=== PATIENT | female | born 1960 | race Caucasian/White ===

== ENCOUNTER 2017-05-03 15:24 | Outpatient (CLI) | payer SELFPAY ==
[2017-05-03 18:41] LABS: BASOPHILS # (AUTO) 0.1 10^3/uL (0.0-0.1); BASOPHILS % (AUTO) 0.5 %; EOSINOPHILS # (AUTO) 0.7 10^3/uL (0.0-0.7); EOSINOPHILS % (AUTO) 5.5 %; HCT - HEMATOCRIT 38.5 % (37.0-47.0); HGB - HEMOGLOBIN 12.4 g/dL (12.0-16.0); LYMPHOCYTES # (AUTO) 2.7 10^3/uL (1.5-3.5); LYMPHOCYTES % (AUTO) 22.3 %; MEAN CORPUSCULAR HEMOGLOBIN 28.1 pg (27.0-31.0); MEAN CORPUSCULAR HGB CONC 32.2 g/dL (32.0-36.0); MEAN CORPUSCULAR VOLUME 87.5 fL (81.0-99.0); MEAN PLATELET VOLUME 7.6 fL (7.9-10.8); MONOCYTES # (AUTO) 0.8 10^3/uL (0.0-1.0); MONOCYTES % (AUTO) 6.3 %; NEUTROPHILS % (AUTO) 65.4 %; NUCLEATED RED BLOOD CELLS AUTO 0.1 /100WBC; RED CELL DISTRIBUTION WIDTH 13.2 % (12.0-15.0); UNCORRECTED WHITE BLOOD COUNT 12.2 x10^3/uL; WHITE BLOOD COUNT 12.2 x10^3/uL (4.8-10.8)
[2017-05-03 18:48] LABS: HEMOGLOBIN A1C 0.58 g/dL
[2017-05-03 18:51] LABS: ALBUMIN/GLOBULIN RATIO 1.1 (1.0-2.2); BILIRUBIN,TOTAL 0.3 mg/dL (0.2-1.0); CALCIUM 9.2 mg/dL (8.5-10.3); CREATININE 0.7 mg/dL (0.4-1.0); POTASSIUM 4.2 mmol/L (3.5-5.0); TOTAL PROTEIN 7.7 g/dL (6.7-8.2)
== END 2017-05-03 15:25 | disposition home or self-care (01) ==
LOC: LAB.F 15:24
PROVIDERS: ATTEND Physician Assistant Medical
DX: E11.9 Type 2 diabetes mellitus without complications (principal); Z51.81 Encounter for therapeutic drug level monitoring; Z79.899 Other long term (current) drug therapy
CPT/HCPCS: 36415; 80053; 83036; 85025

== ENCOUNTER 2017-08-20 15:23 | Outpatient (CLI) | payer OTHER ==
--- NOTE | 2017-08-21 10:44 | XRAY Report ---
EXAM: LUMBOSACRAL SPINE RADIOGRAPHY EXAM DATE: 08/20/2017 03:43 PM. CLINICAL HISTORY: BACK PAIN, LUMBAR WITH RADICULOPATHY. COMPARISONS: None. TECHNIQUE: 4 views. FINDINGS: Alignment: There is trace grade 1 retrolisthesis of L3 on L4 measuring approximately 3 mm. Otherwise normal alignment. Bones: Five utk-leo-hugyvfe lumbar vertebral bodies are present. No fractures or bone lesions. Disks: There is mild disk desiccation at L4/5 and L5/S1. Facets: There is moderate facet joint hypertrophy in the lower lumbar spine. Sacroiliac Joints: Unremarkable. Soft Tissues: Surgical clips are present in the right abdomen. IMPRESSION: 1. Mild to moderate degenerative changes in the lower lumbar spine. 2. Trace grade 1 retrolisthesis of L3 and L4. [facility] Referring Provider Line: [phone] SITE ID: [id number]
== END 2017-08-20 15:24 | disposition home or self-care (01) ==
LOC: DI.S 15:23
PROVIDERS: ATTEND Physician Assistant Medical
DX: M47.896 Other spondylosis, lumbar region (principal); M43.16 Spondylolisthesis, lumbar region; M51.36 Other intervertebral disc degeneration, lumbar region
CPT/HCPCS: 72110

== ENCOUNTER 2017-09-16 14:27 | Outpatient (CLI) | payer OTHER, BC ==
--- NOTE | 2017-09-17 04:22 | MRI Report ---
EXAM: MRI LUMBAR SPINE WITHOUT CONTRAST EXAM DATE: 09/16/2017 03:05 PM. CLINICAL HISTORY: Low back pain and bilateral thigh pain COMPARISON: Lumbar spine radiographs 08/20/2017.. TECHNIQUE: Multiplanar, multisequence T1-weighted and fluid-sensitive sequences of the lumbar spine f rom T12 to S1 without contrast. Other: None. FINDINGS: Spinal Cord: The conus terminates at L1. The conus medullaris and cauda equina are unremarkable. Alignment: Slight retrolisthesis at L3-L4. Bone Marrow: Five pqf-tnc-grnrcil lumbar vertebral bodies are assumed. No gross fractures or bone les ions. No bone marrow edema. Disk Levels/Facets: T12-L1: Unremarkable. L1-L2: Unremarkable. L2-L3: Unremarkable. L3-L4: Moderate disk space narrowing. Minimal bulging disk. No significant central stenosis. Foramina appear patent. L4-L5: Severe disk space narrowing. Mild bilateral ligamentum flavum hypertrophy. Minimal endplate os teophyte. Mild central stenosis. Mild bilateral foraminal stenosis. L5-S1: Moderate disk space narrowing. Type II endplate changes. Minimal endplate osteophyte. No signi ficant central stenosis. Moderate right-sided facet hypertrophy. Mild bilateral foraminal stenosis. Musculature: Normal. No edema or fatty atrophy. Other: The partially visualized retroperitoneum is unremarkable. IMPRESSION: L3-L4: Moderate disk space narrowing. Minimal bulging disk. No significant central stenosis. Foramina appear patent. L4-L5: Severe disk space narrowing. Mild bilateral ligamentum flavum hypertrophy. Minimal endplate os teophyte. Mild central stenosis. Mild bilateral foraminal stenosis. L5-S1: Moderate disk space narrowing. Type II endplate changes. Minimal endplate osteophyte. No signi ficant central stenosis. Moderate right-sided facet hypertrophy. Mild bilateral foraminal stenosis. Comment: The following findings are so common in adults without low back pain that while we report th eir presence, they must be interpreted with caution and in the context of the clinical situation. (Re carri Tobar et al, Spine 2001) Prevalence of findings in patients without low back pain: Disk degeneration (any evidence): 92% Disk desiccation/T2 signal loss: 83% Disk height loss: 56% Disk bulge: 64% Disk protrusion: 32% Annular tear/high intensity zone: 38% [facility] Referring Provider Line: [phone] SITE ID: [id number]
== END 2017-09-16 14:28 | disposition home or self-care (01) ==
LOC: DI 14:27
PROVIDERS: ATTEND Physician Assistant Medical
DX: M47.896 Other spondylosis, lumbar region (principal); M47.897 Other spondylosis, lumbosacral region
CPT/HCPCS: 72148

== ENCOUNTER 2017-10-18 08:00 | Outpatient (CLI) | payer SELFPAY ==
[2017-10-18 18:07] LABS: BASOPHILS % (AUTO) 0.5 %; EOSINOPHILS # (AUTO) 0.6 10^3/uL (0.0-0.7); EOSINOPHILS % (AUTO) 5.9 %; HGB - HEMOGLOBIN 12.3 g/dL (12.0-16.0); LYMPHOCYTES # (AUTO) 3.1 10^3/uL (1.5-3.5); LYMPHOCYTES % (AUTO) 30.8 %; MEAN CORPUSCULAR HGB CONC 32.5 g/dL (32.0-36.0); MEAN CORPUSCULAR VOLUME 89.4 fL (81.0-99.0); MONOCYTES # (AUTO) 0.7 10^3/uL (0.0-1.0); MONOCYTES % (AUTO) 6.8 %; NEUTROPHILS # (AUTO) 5.7 10^3/uL (1.5-6.6); PLT - PLATELET COUNT 409 10^3/uL (130-450); RED BLOOD COUNT 4.23 10^6/uL (4.20-5.40); RED CELL DISTRIBUTION WIDTH 13.5 % (12.0-15.0); WHITE BLOOD COUNT 10.1 x10^3/uL (4.8-10.8)
[2017-10-18 19:02] LABS: ALBUMIN/GLOBULIN RATIO 1.1 (1.0-2.2); ALKALINE PHOSPHATASE 86 IU/L (42-121); ALT ALANINE AMINOTRANSFERASE 23 IU/L (10-60); AST ASPARTATE AMINOTRANSFERASE 24 IU/L (10-42); BILIRUBIN,TOTAL 0.3 mg/dL (0.2-1.0); BUN - BLOOD UREA NITROGEN 13 mg/dL (6-20); CALCIUM 9.1 mg/dL (8.5-10.3); CARBON DIOXIDE - CO2 30 mmol/L (21-32); CHLORIDE 98 mmol/L (101-111); CHOLESTEROL 275 mg/dL; CREATININE 0.7 mg/dL (0.4-1.0); GFR - MDRD 86 (>89); GLUCOSE 99 mg/dL (70-100); HDL CHOLESTEROL 55 mg/dL; LDL CHOLESTEROL,CALCULATED 183 mg/dL; LDL/HDL RATIO 3.3 (<4.4); SODIUM 136 mmol/L (135-145); TOTAL PROTEIN 7.8 g/dL (6.7-8.2); VLDL CHOLESTEROL 37 mg/dL
[2017-10-18 19:19] LABS: HB2 TOTAL 13.2 g/dL; HEMOGLOBIN A1C 0.55 g/dL
== END 2017-10-18 23:59 | disposition home or self-care (01) ==
LOC: LAB.S 08:00
PROVIDERS: ATTEND Physician Assistant Medical
DX: Z00.00 Encounter for general adult medical examination without abnormal findings (principal); I10 Essential (primary) hypertension; E11.9 Type 2 diabetes mellitus without complications; E55.9 Vitamin D deficiency, unspecified; Z13.29 Encounter for screening for other suspected endocrine disorder
CPT/HCPCS: 36415; 80053; 80061; 82306; 83036; 83721; 84443; 85025

== ENCOUNTER 2018-10-19 13:22 | Outpatient (CLI) | payer OTHER ==
[2018-10-19 17:44] LABS: BASOPHILS # (AUTO) 0.1 10^3/uL (0.0-0.1); BASOPHILS % (AUTO) 0.6 %; EOSINOPHILS # (AUTO) 0.5 10^3/uL (0.0-0.7); EOSINOPHILS % (AUTO) 6.3 %; HGB - HEMOGLOBIN 13.4 g/dL (12.0-16.0); LYMPHOCYTES # (AUTO) 2.9 10^3/uL (1.5-3.5); LYMPHOCYTES % (AUTO) 33.2 %; MEAN CORPUSCULAR HEMOGLOBIN 28.9 pg (27.0-31.0); MEAN CORPUSCULAR HGB CONC 32.6 g/dL (32.0-36.0); MEAN CORPUSCULAR VOLUME 88.8 fL (81.0-99.0); MEAN PLATELET VOLUME 7.1 fL (7.9-10.8); MONOCYTES # (AUTO) 0.6 10^3/uL (0.0-1.0); MONOCYTES % (AUTO) 7.5 %; NEUTROPHILS # (AUTO) 4.5 10^3/uL (1.5-6.6); NEUTROPHILS % (AUTO) 52.4 %; PLT - PLATELET COUNT 520 10^3/uL (130-450); RED BLOOD COUNT 4.63 10^6/uL (4.20-5.40); RED CELL DISTRIBUTION WIDTH 12.3 % (12.0-15.0); WHITE BLOOD COUNT 8.7 x10^3/uL (4.8-10.8)
[2018-10-19 18:05] LABS: HB2 TOTAL 14.6 g/dL; HEMOGLOBIN A1C 0.61 g/dL
[2018-10-19 18:21] LABS: ALKALINE PHOSPHATASE 94 IU/L (42-121); ALT ALANINE AMINOTRANSFERASE 29 IU/L (10-60); AST ASPARTATE AMINOTRANSFERASE 31 IU/L (10-42); BILIRUBIN,TOTAL 0.5 mg/dL (0.2-1.0); BUN - BLOOD UREA NITROGEN 14 mg/dL (6-20); CALCIUM 9.4 mg/dL (8.5-10.3); CARBON DIOXIDE - CO2 29 mmol/L (21-32); CHLORIDE 94 mmol/L (101-111); CHOL/HDL RATIO 4.1 (<4.4); CHOLESTEROL 220 mg/dL; CREATININE 0.7 mg/dL (0.4-1.0); GFR - MDRD 86 (>89); GLUCOSE 122 mg/dL (70-100); HDL CHOLESTEROL 54 mg/dL; LDL CHOLESTEROL,CALCULATED 124 mg/dL; LDL/HDL RATIO 2.3 (<4.4); SODIUM 137 mmol/L (135-145); TOTAL PROTEIN 7.9 g/dL (6.7-8.2); VLDL CHOLESTEROL 42 mg/dL
== END 2018-10-19 13:23 | disposition home or self-care (01) ==
LOC: LAB.F 13:22
PROVIDERS: ATTEND Physician Assistant Medical
DX: Z51.81 Encounter for therapeutic drug level monitoring (principal); E78.5 Hyperlipidemia, unspecified; E11.9 Type 2 diabetes mellitus without complications
CPT/HCPCS: 36415; 80053; 80061; 82043; 83036; 83721; 85025

== ENCOUNTER 2019-01-16 13:07 | Outpatient (CLI) | payer OTHER | END 2019-01-16 13:08 | disposition home or self-care (01) | LOC: LAB.F 13:07 | PROVIDERS: ATTEND Physician Assistant Medical | DX: E03.9 Hypothyroidism, unspecified (principal) | CPT/HCPCS: 36415; 84443 ==

== ENCOUNTER 2020-02-22 08:00 | Outpatient (CLI) | payer OTHER ==
[2020-02-22 20:00] LABS: BILIRUBIN,URINE NEGATIVE (NEGATIVE); GLUCOSE, URINE (UA) NEGATIVE (NEGATIVE); KETONES,URINE (UA) NEGATIVE (NEGATIVE); LEUKOCYTE ESTERASE, URINE NEGATIVE (NEGATIVE); NITRITE,URINE NEGATIVE (NEGATIVE); OCCULT BLOOD,URINE NEGATIVE (NEGATIVE); PROTEIN,URINE NEGATIVE (NEGATIVE); UROBILINOGEN,URINE 0.2 (NORMAL) E.U./dL (NORMAL)
[2020-02-22 20:16] LABS: BACTERIA,URINE None Seen /HPF (None Seen); CLARITY,URINE CLEAR (CLEAR); RBC,URINE None Seen /HPF (0-5); SQUAMOUS EPITHELIAL CELL,UR NONE SEEN (<= Few)
== END 2020-02-22 23:59 | disposition home or self-care (01) ==
LOC: LAB.R 08:00
PROVIDERS: ATTEND Physician Assistant Medical
DX: R35.0 Frequency of micturition (principal)
CPT/HCPCS: 81001; 87086

== ENCOUNTER 2020-02-22 08:00 | Outpatient (CLI) | payer OTHER ==
--- NOTE | 2020-02-23 08:37 | XRAY Report ---
Reason: FLANK PAIN, RIGHT Procedure Date: 02/22/2020 Accession Number: [id number] / [id number] Procedure: XRS - Abdomen 2 View X-Ray CPT Code: 64030 Final Report FULL RESULT: PROCEDURE: Abdomen 2 View X-Ray INDICATIONS: FLANK PAIN, RIGHT TECHNIQUE: 2 view(s) of the abdomen were acquired. COMPARISON: Lumbar spine radiographs 08/20/2017. FINDINGS: Surgical changes and devices: Cholecystectomy clips. Clip in the right lower quadrant. Right breast clips. Bowel: No pneumoperitoneum. No pneumatosis intestinalis. Scattered small bowel and colonic gas. No dilated loops of bowel demonstrated. Soft tissues: No masses; visualized solid organ contours appear normal in size. No suspicious abdominal calcifications. No kidney stones identified. Phleboliths in the pelvis appear similar to the exam from 2017. Lung bases appear clear. Bones: No suspicious bony abnormalities. Lumbar spine degenerative change. IMPRESSION: 1. Nonobstructive bowel gas pattern. No pneumoperitoneum. 2. No kidney stones identified. Consider further evaluation with CT KUB if clinically indicated. Reviewed by: Jose Martin Herrera MD on 02/23/2020 8:36 AM PDT Approved by: Jose Martin Herrera MD on 02/23/2020 8:36 AM PDT Station ID: [id number]
== END 2020-02-22 23:59 | disposition home or self-care (01) ==
LOC: DI.S 08:00
PROVIDERS: ATTEND Physician Assistant Medical
DX: R10.9 Unspecified abdominal pain (principal); R35.0 Frequency of micturition
CPT/HCPCS: 74019

== ENCOUNTER 2020-06-17 12:12 | Outpatient (CLI) | payer OTHER ==
--- NOTE | 2020-06-17 15:19 | Mammography Report ---
BILATERAL DIGITAL DIAGNOSTIC MAMMOGRAM 3D/2D: 06/17/2020 CLINICAL: Post left lumpectomy. Comparison is made to exams dated: 04/20/2020 ultrasound - [facility], 08/01/2019 ma mmogram, 06/21/2019 mammogram, 05/24/2019 mammogram, 04/26/2019 mammogram, and 09/26/2015 mammogram - [facility]. There are scattered fibroglandular elements in both breasts. Prior right breast lumpectomy in the upper outer quadrant. No mass or calcifications seen. There is r ight breast skin thickening. This was seen on prior ultrasound 04/20/2020. There is an oval focal asymmetry in the left breast central to the nipple posterior depth. This is n ot confirmed on additional views. No other significant masses, calcifications, or other findings are seen in either breast. IMPRESSION: INCOMPLETE: NEEDS ADDITIONAL IMAGING EVALUATION 1) Right breast skin thickening. Edema was present on prior ultrasound 04/20/2020. Suspect mastitis mulu cristina post radiation edema. -Recommend on-going clinical surveillance. -If symptoms do not improve, skin biopsy should be considered to exclude inflammatory breast cancer. 2) Otherwise expected appearance of the right lumpectomy site. 3) Left breast central to nipple posterior depth possible focal asymmetry. Additional views do not co nfirm. -A second look targeted ultrasound is recommended and will immediately follow. This exam was interpreted at Station ID: [id number]. NOTE: For mammograms, a report in lay terms will be sent to the patient. Approximately 15% of breast malignancies will not be visualized mammographically. In the management of a palpable breast mass, a negative mammogram must not discourage biopsy of a clinically suspicious lesion. Electronically Signed By: Jose Martin Herrera M.D. slc/:06/17/2020 14:45:19 ACR BI-RADS Category 0: Incomplete 3340F PARENCHYMAL PATTERN: (A) - The breast(s) demonstrate(s) scattered fibroglandular densities. BI-RADS CATEGORY: (0) - 0 Ultrasound [id number] Immediate follow-up LATERALITY: (B)
--- NOTE | 2020-06-17 15:19 | Ultrasound Report ---
LIMITED ULTRASOUND OF LEFT BREAST: 06/17/2020 CLINICAL: Patient returns today to evaluate a focal asymmetry in the left breast. Comparison is made to exams dated: 06/17/2020 mammogram - [facility], 08/01/2019 ma mmogram, 08/01/2019 mammogram, and 06/21/2019 mammogram - [facility]. Color flow and real-time ultrasound of the left breast retroareolar were performed. Linn scale image s of the real-time examination were reviewed. No significant abnormalities were seen sonographically in the left breast in the region of possible f ocal asymmetry. IMPRESSION: NEGATIVE There is no sonographic evidence of malignancy. No mass in the region of possible focal asymmetry. A 1 year screening mammogram is recommended. Exam findings were conveyed to the patient. This exam was interpreted at Station ID: [id number]. Electronically Signed By: Jose Martin Herrera M.D. slc/:06/17/2020 14:43:27 Ultrasound BI-RADS: 1 Negative BI-RADS CATEGORY: (1) - 1 RECOMMENDATION: (ANNUAL) - Recommend routine annual screening mammography. [id number] 1 year screening LATERALITY: (B)
== END 2020-06-17 12:13 | disposition home or self-care (01) ==
LOC: DI 12:12
PROVIDERS: ATTEND Registered Nurse
DX: D05.11 Intraductal carcinoma in situ of right breast (principal); N61.1 Abscess of the breast and nipple
CPT/HCPCS: 76642; 77066

== ENCOUNTER 2020-08-02 12:55 | Outpatient (CLI) | payer OTHER ==
--- NOTE | 2020-08-05 14:05 | Ultrasound Report ---
LIMITED ULTRASOUND OF RIGHT BREAST: 08/02/2020 CLINICAL: Diffuse right breast pain. Comparison is made to exams dated: 06/17/2020 mammogram and 04/20/2020 ultrasound - [facility]. Color flow and real-time ultrasound of the right breast outer aspect and retroareolar regions were pe rformed on the areas of interest. Linn scale images of the real-time examination were reviewed. There is a 2.3 cm x 3.4 cm x 1.3 cm hypoechoic region in the in the right breast at 8 o'clock middle depth deep to the surgical scar. An anechoic fluid collection is noted centrally which measures 0.9 x 0.4 cm. This may correlate with the patients area of pain. There also is an irregular, reniform mass in the right breast at 10 o'clock middle depth. This irreg ular mass is hypoechoic. Additionally, there is benign duct ectasia in the right breast central to the nipple in the retroareo lar region. IMPRESSION: INCOMPLETE: NEEDS ADDITIONAL IMAGING EVALUATION The duct ectasia in the right breast central to the nipple in the retroareolar region is benign. The 2.3 cm x 3.4 cm x 1.3 cm mass in the right breast at 8 o'clock middle depth may represent surgica l scar and a small seroma, however is indeterminate. The irregular mass in the right breast at 10 o'clock middle depth is most consistent with a lymph nod e and is indeterminate. An MRI is recommended to further characterize thee findings and evaluate the patients lateral right b reast pain. This exam was interpreted at Station ID: [id number]. Electronically Signed By: Sara Sprague M.D. lk/:08/02/2020 16:39:47 Ultrasound BI-RADS: 0 Indeterminate BI-RADS CATEGORY: (0) - 0 MRI [id number] Immediate follow-up LATERALITY: (B)
== END 2020-08-02 12:56 | disposition home or self-care (01) ==
LOC: DI 12:55
PROVIDERS: ATTEND Registered Nurse
DX: N60.41 Mammary duct ectasia of right breast (principal); N63.13 Unspecified lump in the right breast, lower outer quadrant; N63.11 Unspecified lump in the right breast, upper outer quadrant
CPT/HCPCS: 76642

== ENCOUNTER 2020-08-29 14:50 | Outpatient (CLI) | payer OTHER ==
[2020-08-29 15:20] LABS: CREATININE 0.8 mg/dL (0.4-1.0)
[2020-08-29] MEDS ORDERED: GADOBUTROL 7.5 MMOL/7.5 ML VIAL ONE (16:01)
[2020-08-29] MEDS ORDERED: GADOBUTROL 7.5 MMOL/7.5 ML VIAL IVP ONE (17:01)
--- NOTE | 2020-09-02 10:19 | MRI Report ---
BREAST MRI OF BOTH BREASTS- WITH CAD: 08/29/2020 CLINICAL: Diffuse right breast pain. Comparison is made to exams dated: 08/02/2020 ultrasound, 06/17/2020 ultrasound, and 06/17/2020 mammog julian - [facility]. Interpretation of this MRI was correlated with available mammograms and ultrasounds. Informed consen t was obtained from the patient. Axial T1, T2, sagittal T1, and pre and post contrast T1 images were obtained with a dedicated breast coil. Post processing was performed including computer aided calcu lations of any tumor volumes and dimensions. Bilateral background breast enhancement is moderate. There is moderate background parenchymal enhancement. Right breast: There is diffuse skin thickening which appears increased compared to the recent mammog julian 06/17/2020. This demonstrates associated enhancement following contrast administration. The find ings demonstrate an anterior and caudal predominance. There is also asymmetric moderate to marked ba ckground enhancement throughout the right breast. In addition, there is extensive linear retroareola r enhancement extending posterolaterally to the lower outer quadrant at approximately the 8 o'clock p osition in the area of the surgical scar. Postsurgical changes are demonstrated in the lower outer q uadrant posteriorly with associated enhancement in the surgical bed. A small loculated fluid collect ion in the surgical bed is demonstrated measuring up to 1.1 x 0.4 cm likely representing a seroma. P ostsurgical changes are also demonstrated within the right chest wall laterally with enhancement of t he pectoral musculature. No discrete masslike enhancement. Left breast: No discrete mass or definite suspicious enhancement demonstrated within the left breast to suggest malignancy. Evaluation is limited by bzej-ke-omkvohyy background parenchymal enhancement. Miscellaneous: No suspicious enlarged axillary or internal mammary lymph nodes by size criteria. IMPRESSION: PROBABLY BENIGN 1. Diffuse skin thickening and enhancement demonstrated within the right breast as well as asymmetric right breast background parenchymal enhancement. The findings are again suggestive of a mastitis an d appear slightly increased compared to the prior mammogram. The differential includes Paget's disea se. Recommend correlation clinically and if indicated further evaluation may be obtained with a skin biopsy. 2. Extensive linear retroareolar enhancement extending posteriorly from the right nipple to the surgi rochelle bed in the lower outer quadrant. This also may represent an infectious or inflammatory mastitis but short-term follow-up is recommended in 3 months following appropriate therapy to exclude malignan cy. 3. Nonspecific enhancement within the surgical bed including involvement of the chest wall may also r eflect involvement of an infectious or inflammatory process. Attention is also recommended on follow -up in 3 months following appropriate therapy. A follow-up breast MRI in 3 months is recommended. Future imaging is recommended as follows: 021 screening mammogram. This exam was interpreted at Station ID: [id number]. Electronically Signed By: Buck Westfall M.D. ddp/:08/30/2020 17:12:10 ACR BI-RADS Category 3: Probably benign 3343F BI-RADS CATEGORY: (3) - 3 MRI [id number] 3 month follow-up LATERALITY: (B)
== END 2020-08-29 14:51 | disposition home or self-care (01) ==
LOC: DI 14:50
PROVIDERS: ATTEND Registered Nurse
DX: D05.11 Intraductal carcinoma in situ of right breast (principal); N61.0 Mastitis without abscess
CPT/HCPCS: 36415; 77049; 82565; A9585

== ENCOUNTER 2020-09-06 14:41 | Emergency (ER) | payer OTHER ==
--- NOTE | 2020-09-06 14:54 | ED Physician Documentation ---
PD HPI SKIN - Stated complaint Stated Complaint: RIGHT SIDED BREAST PX - Chief complaint Chief Complaint: General - History obtained from History obtained from: Patient - History of Present Illness Timing - onset: How many days ago (few days of redness/ pain/ swelling lateral right breast radiating to right axillary area. No pain wrapping to the back.) Quality / character: Painful, Discolored, Swelling. No: Draining Associated symptoms: Myalgias, N/V/D. No: Fever Similar symptoms before: Diagnosis (recurrent mastitis over the past 6 months. Has had prior lumpectomy in that breast. Had MRI of the breast as follow up to U/S, which showed small fluid collection (persistent seroma?) with inflammatory changes retroareaolar and in breast skin c/w cellulitis/mastitis. No tumors.) Recently seen: Clinic Review of Systems Constitutional: reports: Myalgias. denies: Fever, Chills Nose: denies: Rhinorrhea / runny nose, Congestion Throat: denies: Sore throat Respiratory: denies: Cough GI: reports: Nausea. denies: Vomiting, Diarrhea Neurologic: denies: Focal weakness, Numbness, Near syncope PD PAST MEDICAL HISTORY - Past Medical History Cardiovascular: Hypertension, High cholesterol Respiratory: Asthma Endocrine/Autoimmune: HyPOthyroidism Psych: Depression - Past Surgical History Past Surgical History: Yes General: Cholecystectomy Ortho: Carpal Tunnel surgery /[employer]: section - Present Medications Home Medications: Ambulatory Orders Medication Instructions Recorded Confirmed Albuterol Oral Soln 2 mg PO Q6H 11/29/13 11/29/13 Alprazolam [Xanax] 0.25 mg PO 11/29/13 11/29/13 Levothyroxine [Synthroid] 175 mcg PO QDAC 11/29/13 11/29/13 Rosuvastatin Calcium [Crestor] 5 mg PO 11/29/13 11/29/13 Tizanidine HCl 2 mg PO 11/29/13 11/29/13 atenoloL [Atenolol] 25 mg PO 11/29/13 11/29/13 hydroCHLOROthiazide [Hydrodiuril] 12.5 mg PO 11/29/13 11/29/13 lamoTRIgine [LaMICtal] 25 mg PO DAILY 11/29/13 11/29/13 oxyCODONE ER [OxyCONTIN] 10 mg PO Q12H 11/29/13 11/29/13 Clindamycin [Cleocin] 300 mg PO Q6H 7 Days capsule 04/20/20 Oxycodone HCl/Acetaminophen 1 - 2 each PO Q6H PRN #14 tablet 04/20/20 [Percocet 5-325 mg Tablet] Doxycycline Monohydrate 150 mg PO BID #14 capsule 09/06/20 Hydrocodone/Acetaminophen [Warren 1 each PO QID #16 tablet 09/06/20 7.5-325 Tablet] Naproxen Sodium [Anaprox Ds] 550 mg PO BID #20 tablet 09/06/20 - Allergies Allergies/Adverse Reactions: Allergies Allergy/AdvReac Type Severity Reaction Status Date / Time cephalexin monohydrate * Allergy Rash Verified 09/06/20 14:51 [From Keflex] Latex, Natural Rubber Allergy burning Verified 09/06/20 14:51 sensation methadone [Methadone] Allergy Rash Verified 09/06/20 14:51 Sulfa (Sulfonamide Allergy Rash Verified 09/06/20 14:51 Antibiotics) duloxetine AdvReac Emesis Verified 09/06/20 14:51 - Social History Does the pt smoke?: No Smoking Status: Never smoker Does the pt drink ETOH?: No Does the pt have substance abuse?: No PD ED PE NORMAL - Vitals Vital signs reviewed: Yes - General General: Alert and oriented X 3, Well developed/nourished, Other (appears in pain due to breast redness/swelling. ) - Neck Neck: Supple, no meningeal sign, No adenopathy - Cardiac Cardiac: RRR, No murmur - Respiratory Respiratory: Clear bilaterally - Abdomen Abdomen: Normal bowel sounds, Soft, Non tender, Non distended - Derm Derm: Normal color, Warm and dry, Other (right breast lateral and inferiorly with firmness, redness, very tender, but no fluctuance. Mild fullness laterally. No axillary nodes. ) - Extremities Extremities: No edema, No calf tenderness / cord - Neuro Neuro: Alert and oriented X 3, No motor deficit, Normal speech Eye Opening: Spontaneous Motor: Obeys Commands Verbal: Oriented GCS Score: 15 Results - Vitals Vitals: Vital Signs - 24 hr 09/06/20 09/06/20 09/06/20 14:45 15:04 16:45 Temperature 36.5 C Heart Rate 91 87 94 Respiratory 17 18 20 Rate Blood Pressure 166/97 H 167/91 H 137/76 H O2 Saturation 96 95 96 Oxygen O2 Source Room air - Labs Labs: Laboratory Tests 09/06/20 09/06/20 15:13 15:13 WBC 10.8 RBC 4.04 L Hgb 11.6 L Hct 37.8 MCV 93.6 MCH 28.7 MCHC 30.7 L RDW 12.3 Plt Count 443 MPV 8.4 Neut # (Auto) 6.8 H Lymph # (Auto) 2.5 Sargent # (Auto) 0.8 Eos # (Auto) 0.7 Baso # (Auto) 0.1 Absolute Nucleated RBC 0.00 Nucleated RBC % 0.0 Sodium 140 Potassium 4.0 Chloride 96 L Carbon Dioxide 28 Anion Gap 16.0 H BUN 15 Creatinine 0.8 Estimated GFR (MDRD) 73 L Glucose 116 H Calcium 9.3 C-Reactive Protein < 1.0 PD MEDICAL DECISION MAKING - ED course Complexity details: reviewed old records (MRI report from 08/29/20 showing mastitis and cellulitis. No noted tumors. Small fluid collection c/w seroma at prior biopsy site. ), reviewed results, considered differential (c/w mastitis, no fever nor general symptoms. Has had it recurrently with improvement with Bactrim last time. ALlergic/vomiting from Clindamycin. Presume staph cause. ), d/w patient, d/w senior safety management consultant (tried contacting Dr. Teto Cochran at her Pain CLinic to discuss increased pain meds short term due to acute mastitis. The clinic was closed for the day. ) Departure - Departure Disposition: 01 Home, Self Care Clinical Impression: Infective mastitis, Breast pain Condition: Stable Record reviewed to determine appropriate education?: Yes Instructions: ED Breast Infec Follow-Up: Yandy Mendenhall ARNP [Primary Care Provider] - Jyotsna Connelly MD [Provider Admit Priv/Credential] - Prescriptions: Naproxen Sodium [Anaprox Ds] 550 mg PO BID #20 tablet Doxycycline Monohydrate 150 mg PO BID #14 capsule Hydrocodone/Acetaminophen [Warren 7.5-325 Tablet] 1 each PO QID #16 tablet Comments: Your MRI from the showed inflammatory changes consistent with mastitis and cellulitis but no signs of tumors. Follow-up with Dr. Connelly regarding the MRI and breast infection. Follow-up with her on the as planned or sooner if not improving. Use the doxycycline antibiotic twice daily as directed. Also naproxen anti- inflammatory twice daily. Continue with your usual medications and to that add hydrocodone 4 times a day as a supplemental pain medicine. Your pain clinic was closed at this time. I will add a short-term pain medicine to your usual regimen. I will presume your pain clinic provider will be okay with that. Contact them on Wednesday to update. I add this added pain medicine for just 4 days. Recheck if not improving well over the next several days return sooner if worsening such as fevers vomiting, worse pain, increased redness, etc. Discharge Date/Time: 09/06/20 17:03
[2020-09-06] MEDS ORDERED: HYDROmorphone 2 MG/ML VIAL IM STA (15:13)
[2020-09-06] MEDS ORDERED: DOXYCYCLINE 100 MG TABLET PO STA (15:20)
[2020-09-06 15:47] LABS: BASOPHILS # (AUTO) 0.1 10^3/uL (0.0-0.1); BASOPHILS % (AUTO) 0.5 %; EOSINOPHILS # (AUTO) 0.7 10^3/uL (0.0-0.7); EOSINOPHILS % (AUTO) 6.1 %; HGB - HEMOGLOBIN 11.6 g/dL (12.0-16.0); LYMPHOCYTES # (AUTO) 2.5 10^3/uL (1.5-3.5); MEAN CORPUSCULAR HEMOGLOBIN 28.7 pg (27.0-31.0); MEAN CORPUSCULAR HGB CONC 30.7 g/dL (32.0-36.0); MEAN CORPUSCULAR VOLUME 93.6 fL (81.0-99.0); MEAN PLATELET VOLUME 8.4 fL (7.9-10.8); MONOCYTES # (AUTO) 0.8 10^3/uL (0.0-1.0); NEUTROPHILS # (AUTO) 6.8 10^3/uL (1.5-6.6); NEUTROPHILS % (AUTO) 62.9 %; PLT - PLATELET COUNT 443 10^3/uL (130-450); RED BLOOD COUNT 4.04 10^6/uL (4.20-5.40); RED CELL DISTRIBUTION WIDTH 12.3 % (12.0-15.0); WHITE BLOOD COUNT 10.8 x10^3/uL (4.8-10.8)
[2020-09-06 16:06] LABS: BUN - BLOOD UREA NITROGEN 15 mg/dL (6-20); CALCIUM 9.3 mg/dL (8.5-10.3); CARBON DIOXIDE - CO2 28 mmol/L (21-32); CHLORIDE 96 mmol/L (101-111); CREATININE 0.8 mg/dL (0.4-1.0); GLUCOSE 116 mg/dL (70-100); SODIUM 140 mmol/L (135-145)
[2020-09-06 16:34] LABS: CRP - C-REACTIVE PROTEIN < 1.0 mg/dL (0-1.0)
[2020-09-06 16:46] VITALS: BP 137/76
== END 2020-09-06 17:03 | disposition home or self-care (01) ==
LOC: ED 14:41
DX: N61.0 Mastitis without abscess (principal); I10 Essential (primary) hypertension
CPT/HCPCS: 80048; 85025; 86140; 96374; 99283; 99284; A9270; J1170; 36415

== ENCOUNTER 2020-10-04 19:55 | Outpatient (CLI) | payer OTHER | END 2020-10-04 19:56 | disposition home or self-care (01) | LOC: COV 19:55 | PROVIDERS: ATTEND Surgery | DX: Z01.812 Encounter for preprocedural laboratory examination (principal); Z20.822 Contact with and (suspected) exposure to COVID-19; N61.1 Abscess of the breast and nipple ==

== ENCOUNTER 2020-10-07 06:21 | Day surgery (SDC) | payer OTHER ==
[~2020-10-07 06:21] MED LIST: ceFAZolin 2 GM/50 ML 0 GM/0 ML BAG IV ONE
[2020-10-07] MEDS ORDERED: LACTATED RINGERS 1,000 ML IV ONE ×2 (06:54→08:25)
[2020-10-07] MEDS ORDERED: fentaNYL 100 MCG/2 ML VIAL ONE (07:00)
[2020-10-07] MEDS ORDERED: PROPOFOL 200 MG/20 ML VIAL IVP ONE (07:00)
[2020-10-07] MEDS ORDERED: DEXAMETHASONE 4 MG/ML VIAL ONE (07:00)
[2020-10-07] MEDS ORDERED: ONDANSETRON 4 MG/2 ML VIAL ONE (07:00)
[2020-10-07] MEDS ORDERED: LIDOCAINE-MPF 2% 5 ML VIAL ONE (07:00)
[2020-10-07] MEDS ORDERED: BUPIVACAINE 0.5% PF 30 ML VIAL ONE (07:07)
[2020-10-07] MEDS ORDERED: LIDOCAINE MPF 2%-EPI 1:200000 20 ML VIAL ONE (07:07)
[2020-10-07] MEDS ORDERED: ONDANSETRON 4 MG/2 ML VIAL IVP PRN (07:11)
[2020-10-07] MEDS ORDERED: ATROPINE ABBOJECT 1 MG/10 ML SYRINGE IVP PRN (07:11)
[2020-10-07] MEDS ORDERED: ePHEDrine 50 MG/ML VIAL IVP PRN (07:11)
[2020-10-07] MEDS ORDERED: MORPHINE 2 MG/ML CARPUJECT IVP PRN (07:11)
[2020-10-07] MEDS ORDERED: NALOXONE 0.4 MG/ML VIAL IVP PRN (07:11)
[2020-10-07] MEDS ORDERED: fentaNYL 100 MCG/2 ML VIAL IVP PRN (07:11)
[2020-10-07] MEDS ORDERED: METOCLOPRAMIDE 10 MG/2 ML VIAL IVP PRN (07:11)
[2020-10-07] MEDS ORDERED: HYDROmorphone 0.5 MG/0.5 ML SYRINGE IVP PRN (07:11)
--- NOTE | 2020-10-07 07:11 | ANESTHESIA ---
Pre-Anesthesia VS, & Labs - Diagnosis infected right breast - Procedure right breast seroma evacuation with drain placement Vital Signs: Temp Pulse Resp BP Pulse Ox 36.7 C 74 16 149/81 H 99 10/07/20 06:34 10/07/20 06:34 10/07/20 06:34 10/07/20 06:34 10/07/20 06:34 Height: 5 ft 1 in Weight (kg): 68.7 kg Body Mass Index: 28.6 BMI Classification: Overweight - NPO >8 hours - Is Patient ?: No - Lab Results Lab results reviewed: Yes Home Medications and Allergies Home Medications: Ambulatory Orders Acyclovir [Zovirax] 400 mg PO TID PRN 09/30/20 Albuterol 2.5 mg INH Q4H PRN 09/30/20 Albuterol Sulfate [Proair Hfa Inhaler] 1 - 2 puffs INH Q4H PRN 09/30/20 Calcium Carbonate [Elemental Calcium] 1,000 mg PO DAILY 09/30/20 Cholecalciferol [Vitamin D3] 2,500 unit PO BID 09/30/20 Ciclesonide [Alvesco] 2 puffs IH BID PRN 09/30/20 Diclofenac Sodium [Arthritis Pain] 1 applic TP BID PRN 09/30/20 Gabapentin [Neurontin] 300 mg PO BID 09/30/20 Meloxicam [Mobic] 15 mg PO DAILY PRN 09/30/20 Metoprolol Succinate [Toprol Xl] 100 mg PO DAILY 09/30/20 Montelukast Sodium 10 mg PO DAILY PRN 09/30/20 [place]-3 Acid Ethyl Esters [Lovaza] 2 gm PO DAILY 09/30/20 Simvastatin [Zocor] 40 mg PO QPM 09/30/20 Levothyroxine [Synthroid] 137 mcg PO QDAC 11/29/13 Tizanidine HCl 4 mg PO QID PRN 11/29/13 hydroCHLOROthiazide [Hydrodiuril] 12.5 mg PO DAILY 11/29/13 lamoTRIgine [LaMICtal] 100 - 200 mg PO BID 11/29/13 Acyclovir [Zovirax] 400 mg PO TID PRN 09/30/20 Albuterol 2.5 mg INH Q4H PRN 09/30/20 Albuterol Sulfate [Proair Hfa Inhaler] 1 - 2 puffs INH Q4H PRN 09/30/20 Calcium Carbonate [Elemental Calcium] 1,000 mg PO DAILY 09/30/20 Cholecalciferol [Vitamin D3] 2,500 unit PO BID 09/30/20 Ciclesonide [Alvesco] 2 puffs IH BID PRN 09/30/20 Diclofenac Sodium [Arthritis Pain] 1 applic TP BID PRN 09/30/20 Gabapentin [Neurontin] 300 mg PO BID 09/30/20 Meloxicam [Mobic] 15 mg PO DAILY PRN 09/30/20 Metoprolol Succinate [Toprol Xl] 100 mg PO DAILY 09/30/20 Montelukast Sodium 10 mg PO DAILY PRN 09/30/20 [place]-3 Acid Ethyl Esters [Lovaza] 2 gm PO DAILY 09/30/20 Simvastatin [Zocor] 40 mg PO QPM 09/30/20 Allergies/Adverse Reactions: Allergies Allergy/AdvReac Type Severity Reaction Status Date / Time cephalexin monohydrate * Allergy Rash Verified 09/06/20 14:51 [From Keflex] Latex, Natural Rubber Allergy burning Verified 09/06/20 14:51 sensation methadone [Methadone] Allergy Rash Verified 09/06/20 14:51 Sulfa (Sulfonamide Allergy Rash Verified 09/06/20 14:51 Antibiotics) clindamycin AdvReac Nausea, Verified 09/30/20 11:27 diarrhea duloxetine AdvReac Emesis Verified 09/06/20 14:51 lisinopril AdvReac Unknown Verified 10/07/20 06:56 Anes History & Medical History - Anesthetic History Anesthesia Complications: reports: No previous complications Family history of Anesthesia Complications: Denies Family history of Malignant Hyperthermia: Denies - Medical History Cardiovascular: reports: Hypertension, High cholesterol Pulmonary: reports: Asthma Gastrointestinal: reports: None Urinary: reports: None Musculoskeletal: reports: Fibromyalgia, Chronic back pain Endocrine/Autoimmune: reports: HyPOthyroidism Smoking Status: Never smoker - Surgical History General: Cholecystectomy Eyes Ears Nose Throat (EENT): Other Gynecologic: section, Other Orthopedic: Rotator cuff repair, Carpal Tunnel surgery Exam General: Alert, Oriented x3, Cooperative, No acute distress Dental: Loose/Frag Mouth Openin Fingerbreadth Neck Mobility: Normal Mallampati classification: II Respiratory: Lungs clear, Normal breath sounds, No respiratory distress, No accessory muscle use Cardiovascular: Regular rate, Normal S1, Normal S2, No murmurs Plan Anesthesia Type: General Consent for Procedure(s) Verified and Reviewed: Yes Code Status: Attempt Resuscitation ASA classification: 2-Mild systemic disease Is this case an emergency?: No
[2020-10-07] MEDS ORDERED: LIDOCAINE MPF 2%-EPI 1:200000 20 ML VIAL SUBQ ONE ×2 (07:12→08:08)
[2020-10-07] MEDS ORDERED: BUPIVACAINE 0.5% PF 30 ML VIAL INFIL ONE ×2 (07:13→08:08)
[2020-10-07] MEDS ORDERED: MIDAZOLAM 2 MG/2 ML VIAL ONE (07:19)
[2020-10-07] MEDS ORDERED: KETAMINE 500 MG/10 ML VIAL ONE (07:21)
[2020-10-07] MEDS ORDERED: CIPROFLOXACIN 400 MG/200 ML 400 MG/200 ML BAG IV ONE (07:45)
[2020-10-07] MEDS ORDERED: LACTATED RINGERS 1,000 ML IV SCH (08:00)
--- NOTE | 2020-10-07 08:17 | OPERATIVE REPORT ---
Operative Report - General Procedure Date: 10/07/20 Planned Procedure: Wound exploration with evacuation of seroma cavity. Pre-Op Diagnosis: Symptomatic right breast seroma Procedure Performed: Wound exploration with evacuation of seroma cavity, biopsy, culture and drain placement Post Op Diagnosis: Symptomatic right breast seroma - Procedure Note Primary Surgeon: Maricel Anesthesia Provider: RHINA Ndiaye Pathology: Biopsy of seroma cavity Estimated Blood Loss (mL): 5 Drain/Tube Type: Jayant drain (15 F Jayant drain in the seroma cavity) Indications: Symptomatic right breast seroma Findings: No gross evidence of infection. Very small cavity without obvious inflammation Complications: None apparent - Other Other Information/Narrative: After obtaining informed consent, the patient is brought to the operating room and placed in the supine position on the operating table. Following successful induction of general anesthesia, appropriate padding of all bony prominences, and placement appropriate monitors, the right breast and axilla were prepped and draped in the standard surgical fashion. A timeout was held per scope protocol. All elements of the surgical safety checklist were followed before, during, and after the procedure. Following infiltration with local anesthetic to create a field block, the existing right breast incision in the lower outer quadrant wasReopened and carried down through the skin and subcutaneous tissue to enter a small poorly defined seroma cavity below. This cavity did extend all the way to the retromammary bursa. It was primarily a potential space and was developed with the surgeon's finger. A minimal amount of oily murky fluid without odor was evacuated. This fluid was cultured. The posterior wall of the cavity was then biopsied sharply with Metzenbaum scissors. The specimen was passed from the table. The cavity was then irrigated with warm water and aspirated free of all fluid and particulate matter.A 19 [place]olan Jayant drain was placed in the pocket and brought out inferior laterally. It was sewn into place with a silk suture. The incision was then closed in 2 layers of Vicryl Monocryl sutures and Dermabond was applied to the skin. All sponge, needle, and instrument counts were correct at the conclusion of the case. The patient was let awake from anesthesia without difficulty and taken to the postanesthesia care unit in good condition.
[2020-10-07] MEDS ORDERED: oxyCODONE 5 MG TABLET ONE (09:16)
--- NOTE | 2020-10-07 09:59 | ANESTHESIA POST OP EVALUATION ---
Anesthesia Post Eval - Post Anesthesia Eval Vitals: Last Vital Signs Temp 36.7 C 10/07/20 09:15 Pulse 71 10/07/20 09:30 Resp 14 10/07/20 09:30 BP 129/84 H 10/07/20 09:30 Pulse Ox 98 10/07/20 09:30 CV Function Including HR & BP: positive: Stable Pain Control: positive: Satisfactory Nausea & Vomiting: positive: Negative Mental Status: positive: Patient Participates Respiratory Status: Airway Patent Hydration Status: Satisfactory Anesthesia Complications: positive: None
[2020-10-07 10:14] VITALS: BP 138/87
== END 2020-10-07 06:22 | disposition home or self-care (01) ==
LOC: SDS 06:21
PROVIDERS: ATTEND Surgery
PROC: 0HBT0ZX Excision of Right Breast, Open Approach, Diagnostic (ICD-10-PCS; 2020-10-07)
PROC: 0HCT0ZZ Extirpation of Matter from Right Breast, Open Approach (ICD-10-PCS; principal; 2020-10-07 07:30)
DX: N64.89 Other specified disorders of breast (principal); Z85.3 Personal history of malignant neoplasm of breast; Z92.3 Personal history of irradiation; Z20.822 Contact with and (suspected) exposure to COVID-19; I10 Essential (primary) hypertension; E78.00 Pure hypercholesterolemia, unspecified; J45.909 Unspecified asthma, uncomplicated; M79.7 Fibromyalgia; E03.9 Hypothyroidism, unspecified; G89.29 Other chronic pain; M54.9 Dorsalgia, unspecified; E66.3 Overweight; Z68.28 Body mass index [BMI] 28.0-28.9, adult; Z79.51 Long term (current) use of inhaled steroids; Z79.899 Other long term (current) drug therapy
CPT/HCPCS: 19101; 81599; A9270; J7120; 87070; 87205

== ENCOUNTER 2021-07-17 10:50 | Outpatient (CLI) | payer OTHER ==
--- NOTE | 2021-07-18 09:11 | Ultrasound Report ---
LIMITED ULTRASOUND OF RIGHT BREAST: 07/17/2021 CLINICAL: Short term follow up of the right breast. Comparison is made to exams dated: 07/17/2021 mammogram, 08/29/2020 breast MRI, 08/02/2020 ultrasoun d, 06/17/2020 ultrasound, 06/17/2020 mammogram, and 04/20/2020 ultrasound - [facility]. Color flow and real-time ultrasound of the right breast 6 o'clock and 8-10 o'clock regions were perfo rmed. Linn scale images of the real-time examination were reviewed. There is a 0.8 cm x 0.6 cm x 0.3 cm irregular mass in the right breast at 10 o'clock anterior depth 3 cm from the nipple. This irregular mass is hypoechoic. Color flow imaging demonstrates that there is no vascularity present. The breast is decreased in size likely due to radiation changes. These was previously measured further from the nipple. The mass in the right breast at 8 o'clock middle depth is no longer seen. There is skin thickening me asuring 0.6 cm in depth. No fluid collection at 9:00. The duct ectasia in the right breast is no longer seen. IMPRESSION: PROBABLY BENIGN The 0.8 cm irregular mass in the right breast at 10 o'clock anterior depth is likely a lymph node or a scar and is probably benign. Resolved fluid collection at 9:00. A follow-up ultrasound in 6 months is recommended to demonstrate stability. If the patient can tolera te a breast MRI, this would be helpful to document improvement/resolution of asymmetric right breast enhancement seen on prior MRI. The patient experience chest wall pain during prior MRI making the exam very difficult. Today the son ographer reports mild redness of the right breast. No drainage or fluid collection is seen. Exam findings were conveyed to the patient. Patient is advised to monitor for significant change. Cli nical follow-up is recommended. This exam was interpreted at Station ID: [id number]. Electronically Signed By: Jose Martin Herrera M.D. [facility] [place]/:07/17/2021 14:23:26 Ultrasound BI-RADS: 3 Probably benign BI-RADS CATEGORY: (3) - 3 Ultrasound [id number] 6 month follow-up LATERALITY: (B)
--- NOTE | 2021-07-18 09:11 | Mammography Report ---
BILATERAL DIGITAL DIAGNOSTIC MAMMOGRAM 3D/2D: 07/17/2021 CLINICAL: Short term follow up of the right breast, due for bilateral imaging. Comparison is made to exams dated: 08/29/2020 breast MRI, 08/02/2020 ultrasound, 06/17/2020 ultrasoun d, 06/17/2020 mammogram, 04/20/2020 ultrasound - [facility], and 08/01/2019 mammogram - [facility]. There are scattered fibroglandular elements in both breasts. Right breast images are suboptimal despite multiple attempts by the technologist. No significant masses, calcifications, or other findings are seen in either breast. Post-operative f indings and skin thickening of the right breast are similar to the prior exam. Prior right breast lum pectomy. Right breast is asymmetrically smaller than the left. IMPRESSION: INCOMPLETE: NEEDS ADDITIONAL IMAGING EVALUATION No mammographic evidence of malignancy. Similar right breast post-treatment changes. A targeted right breast ultrasound is recommended and will immediately follow. This exam was interpreted at Station ID: [id number]. NOTE: For mammograms, a report in lay terms will be sent to the patient. Approximately 15% of breast malignancies will not be visualized mammographically. In the management of a palpable breast mass, a negative mammogram must not discourage biopsy of a clinically suspicious lesion. Electronically Signed By: Jose Martin Herrera M.D. [facility]/:07/17/2021 12:30:15 ACR BI-RADS Category 0: Incomplete 3340F PARENCHYMAL PATTERN: (A) - The breast(s) demonstrate(s) scattered fibroglandular densities. BI-RADS CATEGORY: (0) - 0 Ultrasound [id number] Immediate follow-up LATERALITY: (B)
== END 2021-07-17 10:51 | disposition home or self-care (01) ==
LOC: DI 10:50
PROVIDERS: ATTEND Registered Nurse
DX: N64.4 Mastodynia (principal); N61.0 Mastitis without abscess; G89.4 Chronic pain syndrome; N63.11 Unspecified lump in the right breast, upper outer quadrant

== ENCOUNTER 2021-12-10 11:47 | Outpatient (CLI) | payer OTHER ==
[2021-12-10 14:56] LABS: BASOPHILS % (AUTO) 0.4 %; EOSINOPHILS # (AUTO) 0.6 10^3/uL (0.0-0.7); EOSINOPHILS % (AUTO) 5.7 %; HCT - HEMATOCRIT 41.6 % (37.0-47.0); HGB - HEMOGLOBIN 13.2 g/dL (12.0-16.0); LYMPHOCYTES # (AUTO) 3.2 10^3/uL (1.5-3.5); LYMPHOCYTES % (AUTO) 29.3 %; MEAN CORPUSCULAR HEMOGLOBIN 28.4 pg (27.0-31.0); MEAN CORPUSCULAR HGB CONC 31.7 g/dL (32.0-36.0); MEAN CORPUSCULAR VOLUME 89.7 fL (81.0-99.0); MEAN PLATELET VOLUME 9.8 fL (7.9-10.8); MONOCYTES # (AUTO) 0.8 10^3/uL (0.0-1.0); MONOCYTES % (AUTO) 7.1 %; NEUTROPHILS # (AUTO) 6.2 10^3/uL (1.5-6.6); NEUTROPHILS % (AUTO) 57.2 %; PLT - PLATELET COUNT 429 10^3/uL (130-450); RED BLOOD COUNT 4.64 10^6/uL (4.20-5.40); RED CELL DISTRIBUTION WIDTH 12.7 % (12.0-15.0); WHITE BLOOD COUNT 10.8 x10^3/uL (4.8-10.8)
[2021-12-10 15:12] LABS: CREATININE,URINE 361.7 mg/dL; MICROALBUM/CREATININE RATIO,UR 10.8 ug/mg (<30.0); MICROALBUMIN,URINE 3.9 mg/dL (0-300.0)
[2021-12-10 15:36] LABS: ALBUMIN 3.9 g/dL (3.2-5.5); ALKALINE PHOSPHATASE 110 IU/L (42-121); ALT ALANINE AMINOTRANSFERASE 22 IU/L (10-60); AST ASPARTATE AMINOTRANSFERASE 29 IU/L (10-42); BILIRUBIN,TOTAL 0.5 mg/dL (0.2-1.0); BUN - BLOOD UREA NITROGEN 13 mg/dL (6-20); CALCIUM 9.4 mg/dL (8.5-10.3); CARBON DIOXIDE - CO2 30 mmol/L (21-32); CHLORIDE 96 mmol/L (101-111); CHOL/HDL RATIO 4.5 (<4.4); CHOLESTEROL 250 mg/dL; CREATININE 0.8 mg/dL (0.4-1.0); GFR - MDRD 73 (>89); GLUCOSE 139 mg/dL (70-100); HDL CHOLESTEROL 56 mg/dL; LDL CHOLESTEROL,CALCULATED 137 mg/dL; LDL/HDL RATIO 2.4 (<4.4); POTASSIUM 4.1 mmol/L (3.5-5.0); SODIUM 139 mmol/L (135-145); TRIGLYCERIDES 286 mg/dL; VLDL CHOLESTEROL 57 mg/dL
[2021-12-10 15:39] LABS: THYROID STIMULATING HORMONE 1.46 uIU/mL (0.34-5.60)
[2021-12-10 20:21] LABS: ESTIMATED AVERAGE GLUCOSE 143 mg/dL (70-100); HEMOGLOBIN A1c% 6.6 % (4.27-6.07)
== END 2021-12-10 11:48 | disposition home or self-care (01) ==
LOC: LAB.S 11:47
PROVIDERS: ATTEND Registered Nurse
DX: I10 Essential (primary) hypertension (principal); G89.4 Chronic pain syndrome; Z79.899 Other long term (current) drug therapy; E03.9 Hypothyroidism, unspecified; E11.9 Type 2 diabetes mellitus without complications
CPT/HCPCS: 36415; 80053; 80061; 82043; 82570; 83036; 83721; 84443; 85025

== ENCOUNTER 2022-02-04 13:30 | Outpatient (CLI) | payer OTHER ==
--- NOTE | 2022-02-05 14:51 | Ultrasound Report ---
LIMITED ULTRASOUND OF RIGHT BREAST: 02/04/2022 CLINICAL: Focal right breast pain. Comparison is made to exams dated: 07/17/2021 ultrasound, 07/17/2021 mammogram, 08/29/2020 breast MR I, 08/02/2020 ultrasound, 06/17/2020 mammogram, and 04/20/2020 ultrasound - [facility] . Color flow and real-time ultrasound of the right breast four quadrants were performed. Linn scale im ages of the real-time examination were reviewed. The mass in the right breast at 10 o'clock anterior depth is no longer seen. This had the appearance of an intramammary lymph node. No fluid collection. No mass in the regions of pain. There is diffuse skin thickening. IMPRESSION: BENIGN There is no sonographic evidence of malignancy. There is diffuse chronic skin thickening. This likely due to post treatment change. If there is tyler rn for inflammatory breast cancer, skin biopsy would be recommended. Exam findings were conveyed to the patient. Patient is advised to monitor for significant change. Cli nical follow-up is recommended. Last bilateral mammogram was on 07/17/2021. This exam was interpreted at Station ID: [id number]. Electronically Signed By: Jose Martin Herrera M.D. [facility]/:02/04/2022 14:38:27 Ultrasound BI-RADS: 2 Benign BI-RADS CATEGORY: (2) - 2 RECOMMENDATION: (ANNUAL) - Recommend routine annual screening mammography. [id number] return to screening LATERALITY: (B)
== END 2022-02-04 13:31 | disposition home or self-care (01) ==
LOC: DI 13:30
PROVIDERS: ATTEND Registered Nurse
DX: N64.4 Mastodynia (principal)

== ENCOUNTER 2022-11-24 00:28 | Emergency (ER) | payer OTHER ==
--- OUTSIDE RECORDS SUMMARY | 2022-11-24 00:50 | EXTERNAL MEDICAL SUMMARY RPT | Continuity of Care Document ---
:1960 Author Organization [facility] Address [address] [place] [address] Phone Care Team Providers Name Role Phone Unavailable Unavailable Unavailable Yandy Beatty Unavailable Unavailable Allergies No information. Encounters No information. Functional Status No information. Immunizations No information. Medications date description facility 2022-09-17 00:00 FREE STYLE LANCETS [facility] 2022-09-18 00:00 FREE STYLE LANCETS [facility] 2022-10-08 00:00 FREE STYLE LANCETS [facility] 2022-10-20 00:00 FREE STYLE LANCETS [facility] 2022-09-17 00:00 FREE STYLE METER [facility] 2022-09-18 00:00 FREE STYLE METER [facility] 2022-10-08 00:00 FREE STYLE METER [facility] 2022-10-20 00:00 FREE STYLE METER [facility] Jazzy jasso 2022-09-17 00:00 FREE STYLE TEST STRIPS [facility] 2022-09-18 00:00 FREE STYLE TEST STRIPS [facility] 2022-10-08 00:00 FREE STYLE TEST STRIPS [facility] jasso 2022-10-20 00:00 FREE STYLE TEST STRIPS [facility] 2022-09-17 00:00 hydrochlorothiazide Walk[facility]In Clinic [facility] 2022-10-08 00:00 hydrochlorothiazide Walk[facility] J[facility] jasso 2022-09-17 00:00 metoprolol succinate [facility] 2022-10-08 00:00 metoprolol succinate [facility] 2022-10-08 00:00 albuterol sulfate [facility] 2022-09-17 00:00 levothyroxine [facility] 2022-10-08 00:00 levothyroxine [facility] 2022-09-17 00:00 ciclesonide [facility] 2022-10-08 00:00 ciclesonide [facility] 2022-09-17 00:00 lamotrigine [facility] 2022-10-08 00:00 lamotrigine [facility] 2022-09-17 00:00 hydrochlorothiazide [facility] 2022-10-08 00:00 hydrochlorothiazide [facility] 2022-10-08 00:00 montelukast [facility] 2022-09-17 00:00 trazodone [facility] 2022-10-08 00:00 trazodone [facility] 2022-10-20 00:00 [id number] [facility] 2022-10-08 00:00 metformin [facility] 2022-09-17 00:00 levothyroxine [facility] 2022-10-08 00:00 levothyroxine [facility] 2022-09-17 00:00 levothyroxine [facility] 2022-10-08 00:00 levothyroxine [facility] 2022-10-08 00:00 metformin [facility] 2022-10-08 00:00 gabapentin [facility] 2022-10-20 00:00 [id number] [facility] 2022-10-08 00:00 tizanidine [facility] 2022-09-17 00:00 metoprolol succinate [facility] 2022-10-08 00:00 metoprolol succinate [facility] 2022-09-17 00:00 losartan [facility] 2022-10-08 00:00 losartan [facility] 2022-09-17 00:00 lamotrigine [facility] 2022-10-08 00:00 lamotrigine [facility] 2022-09-17 00:00 hydrochlorothiazide Walk[facility]In Clinic [facility] 2022-10-08 00:00 hydrochlorothiazide Walk[facility] 2022-10-08 00:00 atorvastatin [facility] 2022-10-08 00:00 tizanidine [facility] 2022-09-17 00:00 losartan [facility] 2022-10-08 00:00 losartan [facility] 2022-10-08 00:00 albuterol sulfate [facility] 2022-09-17 00:00 albuterol sulfate [facility] 2022-10-08 00:00 albuterol sulfate [facility] 2022-09-17 00:00 ciclesonide [facility] 2022-10-08 00:00 ciclesonide [facility] 2022-10-08 00:00 montelukast [facility] 2022-09-17 00:00 albuterol sulfate [facility] 2022-10-08 00:00 albuterol sulfate [facility] 2022-09-17 00:00 hydrochlorothiazide Walk[facility] 2022-10-08 00:00 hydrochlorothiazide Walk[facility] 2022-10-08 00:00 atorvastatin [facility] 2022-09-17 00:00 trazodone [facility] 2022-10-08 00:00 trazodone [facility] 2022-10-08 00:00 montelukast [facility] 2022-09-17 00:00 kwztkzvz-brsrlv-jz-thonzonium [facility] 2022-10-08 00:00 eppsmymy-sdiswa-nn-thonzonium [facility] 2022-10-08 00:00 metformin [facility] 2022-10-08 00:00 tizanidine [facility] 2022-09-17 00:00 trazodone [facility] 2022-10-08 00:00 trazodone [facility] 2022-09-17 00:00 lamotrigine [facility] 2022-10-08 00:00 lamotrigine [facility] 2022-10-08 00:00 gabapentin [facility] 2022-10-08 00:00 gabapentin [facility] 2022-10-08 00:00 atorvastatin [facility] 2022-10-08 00:00 albuterol sulfate [facility] 2022-10-08 00:00 atorvastatin [facility] 2022-09-17 00:00 oqubrnwm-qdczbb-te-thonzonium [facility] 2022-10-08 00:00 nwcriigy-htopqo-sm-thonzonium [facility] jasso 2022-10-08 00:00 montelukast [facility] 2022-09-17 00:00 albuterol sulfate [facility] 2022-10-08 00:00 albuterol sulfate [facility] 2022-10-20 00:00 vzrtsayl-xnvmthefv-kq [facility] 2022-10-08 00:00 albuterol sulfate [facility] 2022-09-17 00:00 losartan [facility] 2022-10-08 00:00 losartan [facility] 2022-09-17 00:00 ciclesonide [facility] 2022-10-08 00:00 ciclesonide [facility] 2022-09-17 00:00 metoprolol succinate [facility] Jazzy jasso 2022-10-08 00:00 metoprolol succinate [facility] 2022-10-08 00:00 gabapentin [facility] 2022-09-17 00:00 lamotrigine [facility] 2022-10-08 00:00 [facility]otrigine [facility] albuterol sulfate [facility] 2022-10-08 00:00 albuterol sulfate [facility] 2022-10-08 00:00 tizanidine [facility] 2022-09-17 00:00 ciclesonide [facility] 2022-10-08 00:00 ciclesonide [facility] 2022-09-17 00:00 zomsbgww-mwudxi-bf-thonzonium [facility] 2022-10-08 00:00 irtzrwgx-nothmo-pn-thonzonium [facility] 2022-09-17 00:00 trazodone [facility] 2022-10-08 00:00 trazodone [facility] 2022-10-08 00:00 metformin [facility] 2022-09-17 00:00 metoprolol succinate [facility] 2022-10-08 00:00 metoprolol succinate [facility] 2022-10-20 00:00 wscehclp-fnbiwdkmf-zb [facility] 2022-09-17 00:00 ipjkbixw-jdqcxi-vc-thonzonium [facility] 2022-10-08 00:00 djvntueu-nxlykh-ys-thonzonium [facility] Jaz[facility] jasso 2022-09-17 00:00 levothyroxine [facility] 2022-10-08 00:00 levothyroxine [facility] 2022-09-17 00:00 losartan [facility] 2022-10-08 00:00 losartan [facility] jasso Problems date description facility 2022-09-17 00:00 Moderate recurrent major [facility] & depression [facility] 2022-09-17 00:00 Long-term drug therapy [facility] 2022-09-17 00:00 Major depressive disorder, [facility] & recurrent episode, moderate degree [facility] [place] 2022-09-17 00:00 Major depressive disorder, [facility] Primary Care & recurrent episode, in partial or Ancilla [facility] [place] unspecified remission 2022-09-17 00:00 Otitis externa [facility] 2022-09-17 00:00 Infective otitis externa, [facility] Care & unspecified [facility] 2022-09-17 00:00 Major depressive disorder, [facility] & recurrent, moderate [facility] 2022-09-17 00:00 Major depressive disorder, [facility] & recurrent, in partial remission [facility] [place] 2022-09-17 00:00 Unspecified otitis externa, right [facility] Primary [facility] & ear [facility] 2022-09-17 00:00 Long-term (current) drug use Walk[facility]In [facility] 2022-09-17 00:00 Other custodial (current) drug [facility] & therapy [facility] 2022-09-18 00:00 Moderate recurrent major [facility] & depression [facility] 2022-09-18 00:00 Major depressive disorder, [facility] & recurrent episode, moderate degree [facility] [place] 2022-09-18 00:00 Major depressive disorder, [facility] Care & recurrent episode, in partial or [facility] [place] unspecified remission 2022-09-18 00:00 Major depressive disorder, [facility] & recurrent, moderate [facility] 2022-09-18 00:00 Major depressive disorder, [facility] & recurrent, in partial remission [facility] [place] 2022-10-08 00:00 Moderate recurrent major [facility] & depression [facility] 2022-10-08 00:00 Major depressive disorder, [facility] & recurrent episode, moderate degree [facility] [place] 2022-10-08 00:00 Major depressive disorder, [facility] Care & recurrent episode, in partial or [facility] [place] unspecified remission 2022-10-08 00:00 Major depressive disorder, [facility] & recurrent, moderate [facility] 2022-10-08 00:00 Major depressive disorder, [facility] & recurrent, in partial remission [facility] [place] 2022-10-20 00:00 Moderate recurrent major [facility] & depression [facility] 2022-10-20 00:00 Major depressive disorder, [facility] & recurrent episode, moderate degree [facility] [place] 2022-10-20 00:00 Major depressive disorder, [facility] Care & recurrent episode, in partial or [facility] [place] unspecified remission 2022-10-20 00:00 Major depressive disorder, [facility] & recurrent, moderate [facility] 2022-10-20 00:00 Major depressive disorder, [facility] & recurrent, in partial remission [facility] [place] Procedures date description facility 2022-09-17 00:00 Visit Code Hold [facility] [place] Results/Labs No information. Social History date description facility 2022-09-17 00:00 Never smoker [facility] [place] Vital Signs date measurement value units 2022-09-17 00:00 BMI 28.92 kg/m2 2022-09-17 00:00 BP_diastolic 87 mmHg 2022-09-17 00:00 BP_systolic 175 mmHg 2022-09-17 00:00 heart_rate 73 /min 2022-09-17 00:00 height_metric 153.67 cm 2022-09-17 00:00 height_standard 60.5 in 2022-09-17 00:00 respiration_rate 14 /min 2022-09-17 00:00 temperature_metric 36.78 C 2022-09-17 00:00 temperature_standard 98.2 F 2022-09-17 00:00 weight_metric 68.04 kg 2022-09-17 00:00 weight_standard 150 lb
[2022-11-24 00:53] LABS: BASOPHILS % (AUTO) 0.3 %; EOSINOPHILS % (AUTO) 0.1 %; HCT - HEMATOCRIT 42.6 % (37.0-47.0); HGB - HEMOGLOBIN 13.8 g/dL (12.0-16.0); LYMPHOCYTES % (AUTO) 4.6 %; MEAN CORPUSCULAR HEMOGLOBIN 28.1 pg (27.0-31.0); MEAN CORPUSCULAR HGB CONC 32.4 g/dL (32.0-36.0); MEAN CORPUSCULAR VOLUME 86.8 fL (81.0-99.0); MEAN PLATELET VOLUME 8.7 fL (7.9-10.8); MONOCYTES % (AUTO) 4.6 %; NEUTROPHILS % (AUTO) 89.5 %; PLT - PLATELET COUNT 674 10^3/uL (130-450); RED BLOOD COUNT 4.91 10^6/uL (4.20-5.40); RED CELL DISTRIBUTION WIDTH 12.5 % (12.0-15.0); WHITE BLOOD COUNT 29.9 x10^3/uL (4.8-10.8)
[2022-11-24 00:55] LABS: ABNORMAL LYMPHS % (MANUAL) 0 %
[2022-11-24] MEDS ORDERED: SODIUM CHLORIDE 0.9% 1,000 ML IV STA ×2 (00:57→05:37)
[2022-11-24] MEDS ORDERED: ONDANSETRON 4 MG/2 ML VIAL IVP STA ×2 (00:57→06:44)
--- NOTE | 2022-11-24 01:00 | ED Physician Documentation ---
PD HPI CHEST PAIN - Stated complaint Stated Complaint: NAUSEA/CHEST PX - Chief complaint Chief Complaint: Cardiac - History obtained from History obtained from: Patient - Additional information Additional information: 62-year-old woman with hx breast ca and fibromyalgia/chronic pain presented to the emergency department with full body aches, abd pain and chest pain radiating to the upper back with associated nausea and vomiting since yesterday at 3 PM. unable to keep down her home meds or any fluids. Patient does have a history of breast cancer in remission s/p radiation, complicated by chronic mastitis requiring hyperbaric oxygen. Review of Systems Constitutional: reports: Chills, Myalgias, Fatigue. 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, Other HEENT: Other - Present Medications Home Medications: Ambulatory Orders Medication Instructions Recorded Confirmed Levothyroxine [Synthroid] 137 mcg PO QDAC 11/29/13 11/24/22 Tizanidine HCl 4 mg PO QID PRN 11/29/13 11/24/22 hydroCHLOROthiazide [Hydrodiuril] 12.5 mg PO DAILY 11/29/13 11/24/22 lamoTRIgine [LaMICtal] 100 - 200 mg PO BID 11/29/13 11/24/22 Oxycodone HCl/Acetaminophen 1 - 2 each PO Q6H PRN #14 tablet 04/20/20 11/24/22 [Percocet 5-325 mg Tablet] Albuterol Sulfate [Proair Hfa 1 - 2 puffs INH Q4H PRN 09/30/20 11/24/22 Inhaler] Calcium Carbonate [Elemental 1,000 mg PO DAILY 09/30/20 11/24/22 Calcium] Cholecalciferol [Vitamin D3] 2,500 unit PO BID 09/30/20 11/24/22 Ciclesonide [Alvesco] 2 puffs IH BID PRN 09/30/20 11/24/22 Diclofenac Sodium [Arthritis Pain] 1 applic TP BID PRN 09/30/20 11/24/22 Gabapentin [Neurontin] 300 mg PO BID 09/30/20 11/24/22 Metoprolol Succinate [Toprol Xl] 100 mg PO DAILY 09/30/20 11/24/22 Montelukast Sodium 10 mg PO DAILY PRN 09/30/20 11/24/22 [place]-3 Acid Ethyl Esters [Lovaza] 2 gm PO DAILY 09/30/20 11/24/22 Simvastatin [Zocor] 40 mg PO QPM 09/30/20 11/24/22 Ondansetron Odt [Zofran Odt] 4 mg TL Q6H PRN #10 tablet 10/07/20 11/24/22 oxyCODONE [Roxicodone] 5 mg PO Q4-6H PRN #7 tablet 10/07/20 11/24/22 Pregabalin [Lyrica] 75 mg PO BID #120 cap 10/29/20 11/24/22 Amitriptyline [Elavil] 10 mg PO QPM 11/24/22 11/24/22 Amlodipine Besylate [Norvasc] 10 mg PO DAILY 11/24/22 11/24/22 hydroCHLOROthiazide [Hydrodiuril] 12.5 mg PO DAILY 11/24/22 11/24/22 lamoTRIgine [Lamictal] 200 mg PO DAILY 11/24/22 11/24/22 metFORMIN [Glucophage] 500 mg PO BID 11/24/22 11/24/22 methocarbamoL [Methocarbamol] 1 - 2 tab PO Q8HR PRN 11/24/22 11/24/22 - Allergies Allergies/Adverse Reactions: Allergies Allergy/AdvReac Type Severity Reaction Status Date / Time cephalexin monohydrate * Allergy Rash Verified 11/24/22 00:42 [From Keflex] Latex, Natural Rubber Allergy burning Verified 11/24/22 00:42 sensation methadone [Methadone] Allergy Rash Verified 11/24/22 00:42 Sulfa (Sulfonamide Allergy Rash Verified 11/24/22 00:42 Antibiotics) clindamycin AdvReac Nausea, Verified 11/24/22 00:42 diarrhea duloxetine AdvReac Emesis Verified 11/24/22 00:42 lisinopril AdvReac Unknown Verified 11/24/22 00:42 - Social History Does the pt smoke?: No Smoking Status: Never smoker Does the pt drink ETOH?: No Does the pt have substance abuse?: No - Immunizations Immunizations are current?: Yes - POLST Patient has POLST: No PD ED PE NORMAL - Vitals Vital signs reviewed: Yes - General General: Alert and oriented X 3, Other (uncomfortable appearing) - HEENT HEENT: Atraumatic, PERRL, EOMI - Neck Neck: Supple, no meningeal sign - Cardiac Cardiac: Other (tachycardic rate, regular rhythm) - Respiratory Respiratory: No respiratory distress, Clear bilaterally - Abdomen Abdomen: Non tender, Non distended, Other (discomfort ) - Derm Derm: Normal color, Warm and dry - Neuro Neuro: No motor deficit, No sensory deficit - Psych Psych: Normal mood, Normal affect Results - Vitals Vitals: Vital Signs - 24 hr 11/24/22 11/24/22 11/24/22 00:34 00:48 01:25 Temperature 36.6 C Heart Rate 139 H 127 H 118 H Respiratory 20 16 22 Rate Blood Pressure 199/121 H 178/110 H 164/114 H O2 Saturation 98 100 100 11/24/22 11/24/22 11/24/22 01:42 01:50 02:00 Temperature Heart Rate 115 H 133 H 121 H Respiratory 16 17 22 Rate Blood Pressure 163/91 H 165/103 H 169/81 H O2 Saturation 99 99 98 11/24/22 11/24/22 11/24/22 02:19 04:00 04:30 Temperature 37.2 C Heart Rate 118 H 126 H 114 H Respiratory 19 14 12 Rate Blood Pressure 173/87 H 190/112 H 155/98 H O2 Saturation 96 99 93 11/24/22 11/24/22 11/24/22 05:03 05:35 05:56 Temperature Heart Rate 122 H 115 H 111 H Respiratory 12 13 12 Rate Blood Pressure 180/106 H 165/99 H 162/96 H O2 Saturation 95 93 94 11/24/22 11/24/22 11/24/22 06:31 07:00 07:24 Temperature Heart Rate 117 H 114 H 90 Respiratory 12 12 10 L Rate Blood Pressure 176/106 H 139/83 H 148/94 H O2 Saturation 95 93 95 03/07/23 07:38 Temperature Heart Rate 94 Respiratory 11 L Rate Blood Pressure 157/100 H O2 Saturation 95 Oxygen O2 Source Room air - Labs Labs: Laboratory Tests 11/24/22 11/24/22 11/24/22 00:44 00:44 00:44 WBC 29.9 H RBC 4.91 Hgb 13.8 Hct 42.6 MCV 86.8 MCH 28.1 MCHC 32.4 RDW 12.5 Plt Count 674 H MPV 8.7 Neut # (Auto) Not Reportable Lymph # (Auto) Not Reportable [place] # (Auto) Not Reportable Eos # (Auto) Not Reportable Baso # (Auto) Not Reportable Absolute Nucleated RBC Not Reportable Total Counted 100 Band Neuts % (Manual) 1 Abnorm Lymph % (Manual) 0 Nucleated RBC % Not Reportable Neutrophils # (Manual) 25.7 H Lymphocytes # (Manual) 1.8 Monocytes # (Manual) 2.4 H Eosinophils # (Manual) 0.0 Basophils # (Manual) 0.0 Differential Comment MANUAL DIFFERENTIAL WBC Morphology NORMAL APPEARANCE Platelet Estimate INCREASED (>450,000) Platelet Morphology NORMAL APPEARANCE RBC Morph Micro Appear NORMAL APPEARANCE D-Dimer Sodium 143 Potassium 2.9 L Chloride 97 L Carbon Dioxide 20 L Anion Gap 26.0 H BUN 16 Creatinine 1.1 H Estimated GFR (MDRD) 50 L Glucose 303 H Calcium 10.3 Total Bilirubin 0.6 AST 36 ALT 26 Alkaline Phosphatase 128 H Troponin I High Sens 57.5 H* Total Protein 8.7 H Albumin 4.5 Globulin 4.2 Albumin/Globulin Ratio 1.1 Lipase 23 11/24/22 11/24/22 11/24/22 01:40 05:17 07:00 WBC RBC Hgb Hct MCV MCH MCHC RDW Plt Count MPV Neut # (Auto) Lymph # (Auto) [place] # (Auto) Eos # (Auto) Baso # (Auto) Absolute Nucleated RBC Total Counted Band Neuts % (Manual) Abnorm Lymph % (Manual) Nucleated RBC % Neutrophils # (Manual) Lymphocytes # (Manual) Monocytes # (Manual) Eosinophils # (Manual) Basophils # (Manual) Differential Comment WBC Morphology Platelet Estimate Platelet Morphology RBC Morph Micro Appear D-Dimer 355.6 H Sodium Potassium Chloride Carbon Dioxide Anion Gap BUN Creatinine Estimated GFR (MDRD) Glucose Calcium Total Bilirubin AST ALT Alkaline Phosphatase Troponin I High Sens 250.9 H* 264.8 H* Total Protein Albumin Globulin Albumin/Globulin Ratio Lipase PD Medical Decision Making - ED course ED course: 62yF presented with myalgia, abd pain, n/v, and chest discomfort radiating to the back. EKG was performed which shows a significant artifact, performed at 00 41 and misread as atrial fibrillation. We will plan to repeat. Plan to obtain CBC, abdominal panel, troponin, chest x-ray, D-dimer given history of breast cancer she may be at increased risk of PE in the setting of chest pain. Repeat EKG @04:42 sinus tachycardia at [address] or T wave changes. 7am - CT without evidence of pathology. patient requiring significant symptomatic care including multiple doses IV zofran/reglan, IV pain meds, and 2 L IVF. Suspect viral gastroenteritis in conjunction with NSTEMI. She has had persistent tachycardia despite aggressive symptom management but this may be in part due to not being able to stomach her 100mg metoprolol yesterday. IV 5mg metoprolol administered. d/w Dr. Correa who requested CT a/p be performed to evaluate for colitis or obstruction. She requested we call her back after CT read. Patient endorsed to Dr. Nolasco to f/u CT and potentially admit [facility] for further management. Departure - Departure Clinical Impression: Chest pain, Abdominal pain, Nausea and vomiting, Myalgia, Hypokalemia Condition: Serious
[2022-11-24] MEDS ORDERED: MORPHINE 2 MG/ML CARPUJECT IVP STA (01:06)
[2022-11-24 01:14] LABS: BAND NEUTROPHILS % (MANUAL) 1 %; LYMPHOCYTES # (MANUAL) 1.8 10^3/uL (1.5-3.5); LYMPHOCYTES % (MANUAL) 6 %; MONOCYTES # (MANUAL) 2.4 10^3/uL (0.0-1.0); NEUTROPHILS # (MANUAL) 25.7 10^3/uL (1.5-6.6)
[2022-11-24 01:15] LABS: DIFFERENTIAL COMMENT MANUAL DIFFERENTIAL; PLATELET ESTIMATE, MANUAL INCREASED (>450,000) (NORMAL); PLATELET MORPHOLOGY NORMAL APPEARANCE (NORMAL); RBC MORPHOLOGY (MULTIPLE) NORMAL APPEARANCE (NORMAL); WBC MORPHOLOGY (MULTIPLE) NORMAL APPEARANCE (NORMAL)
[2022-11-24] MEDS ORDERED: NITROGLYCERIN SL 0.4 MG TABLET SL STA (01:40)
--- NOTE | 2022-11-24 01:46 | XRAY Report ---
PROCEDURE: Chest 1 View X-Ray INDICATIONS: Chest Pain TECHNIQUE: One view of the chest was acquired. COMPARISON: None. FINDINGS: Surgical changes and devices: None. Lungs and pleura: No pleural effusions or pneumothorax. Lungs are clear. Mediastinum: Mediastinal contours appear normal. Heart size is normal. Bones and chest wall: No suspicious bony lesions. Overlying soft tissues appear unremarkable. IMPRESSION: 1. No acute cardiopulmonary disease. Reviewed by: Buck Carrasquillo MD on 11/24/2022 1:45 AM [facility] Approved by: Buck Carrasquillo MD on 11/24/2022 1:45 AM [facility] Station ID: [id number]
[2022-11-24] MEDS ORDERED: iohexoL-300 100 ML VIAL ONE ×3 (01:47→07:52)
[2022-11-24] MEDS ORDERED: HYDROmorphone 1 MG/ML CARPUJECT IVP STA ×3 (01:53→06:44)
[2022-11-24 02:08] LABS: ALBUMIN 4.5 g/dL (3.2-5.5); ALBUMIN/GLOBULIN RATIO 1.1 (1.0-2.2); BILIRUBIN,TOTAL 0.6 mg/dL (0.2-1.0); CALCIUM 10.3 mg/dL (8.5-10.3); CREATININE 1.1 mg/dL (0.4-1.0); POTASSIUM 2.9 mmol/L (3.5-5.0); TOTAL PROTEIN 8.7 g/dL (6.7-8.2)
[2022-11-24] MEDS ORDERED: METOCLOPRAMIDE 10 MG/2 ML VIAL IVP STA (02:41)
[2022-11-24] MEDS: POTASSIUM CHLOR 10 MEQ/100 ML 10 MEQ/100 ML BAG IV SCH ×4 (05:12→08:41)
[2022-11-24] MEDS: iohexoL-300 100 ML VIAL IVP ONE ×2 (06:02→14:09)
[2022-11-24] MEDS ORDERED: METOPROLOL 5 MG/5 ML VIAL IVP STA (07:05)
[2022-11-24] MEDS ORDERED: ASPIRIN 325 MG TABLET PO STA (07:27)
[2022-11-24] MEDS ORDERED: CLOPIDOGREL 300 MG TABLET PO STA (07:27)
[2022-11-24] MEDS ORDERED: ENOXAPARIN 60 MG/0.6 ML SYRINGE SUBQ STA (07:33)
[2022-11-24 08:16] LABS: B. PARAPERTUSSIS- RESP PCR PAN NOT DETECTED; B. PERTUSSIS- RESP PCR PANEL NOT DETECTED; C. PNEUMONIAE- RESP PCR PANEL NOT DETECTED; CORONAVIRUS 229E-RESP PCR NOT DETECTED; CORONAVIRUS HKU1-RESP PCR NOT DETECTED; CORONAVIRUS NL63-RESP PCR NOT DETECTED; CORONAVIRUS OC43-RESP PCR NOT DETECTED; HUMAN METAPNEUMOVIRUS NOT DETECTED; INFLUENZA A- RESP PCR PANEL NOT DETECTED; INFLUENZA B - RESP PCR PANEL NOT DETECTED; M. PNEUMONIAE- RESP PCR PANEL NOT DETECTED; PARAINFLUENZA VIRUS 1 NOT DETECTED; PARAINFLUENZA VIRUS 2 NOT DETECTED; PARAINFLUENZA VIRUS 3 NOT DETECTED; PARAINFLUENZA VIRUS 4 NOT DETECTED; RHINOVIRUS/ENTEROVIRUS NOT DETECTED; RSV- RESP PCR PANEL NOT DETECTED; SARS-CoV-2 -RESP PCR PANEL NOT DETECTED
--- NOTE | 2022-11-24 08:49 | CT Report ---
PROCEDURE: ABDOMEN/PELVIS W INDICATIONS: abd pain, nausea/vomiting CONTRAST: Omni 300 100ml TECHNIQUE: After the administration of intravenous contrast, 5 mm thick sections acquired from the diaphragms to the symphysis. 5 mm thick coronal and sagittal reformats were acquired. For radiation dose reducti on, the following was used: automated exposure control, adjustment of mA and/or kV according to scarlet ent size. COMPARISON: None. FINDINGS: Image quality: Excellent. ABDOMEN: Lung bases: Lung bases are clear. Heart size is normal. Moderate hiatal hernia. Solid organs: Liver and spleen are normal in size and enhancement. Coarse calcification at the liver dome, nonspecific. Gallbladder is absent. Biliary system is non dilated, accounting for postcholecy stectomy state. Pancreas enhances normally. No adrenal nodules. Kidneys demonstrate normal size an d enhancement, without hydronephrosis. Peritoneum and bowel: Bowel loops demonstrate normal wall thickness and caliber. No free fluid or a ir. Small duodenal diverticulum. Nodes and vessels: No retroperitoneal or mesenteric adenopathy by size criteria. Aorta and inferior vena cava are normal in size. Miscellaneous: No ventral hernias. PELVIS: Genitourinary: Bladder wall thickness is normal. Miscellaneous: No inguinal hernias or adenopathy. Bones: No suspicious bony lesions. No vertebral body compression fractures. IMPRESSION: No acute findings to explain the patient's abdominal pain or vomiting. No bowel obstruction. Reviewed by: Mynor Andersen on 11/24/2022 8:48 AM [facility] Approved by: Mynor Andersen on 11/24/2022 8:48 AM [facility] Station ID: [id number]
--- NOTE | 2022-11-24 09:50 | CT Report ---
PROCEDURE: ANGIO CHEST W/WO INDICATIONS: cp, cancer patient, elevated troponin CONTRAST: Omni 300 100ml TECHNIQUE: After the administration of intravenous contrast, 2 mm axial images were acquired from the pulmonary apices to the posterior costophrenic angles during the arterial phase. In addition, 1 mm lung kernel and 5 mm soft tissue kernel reconstructions were performed. 3-dimensional coronal oblique maximum int ensity projection (MIP) reformats, 8 mm axial MIP, and 5 mm coronal and sagittal MPR reformats were t hen performed through the thorax. For radiation dose reduction, the following was used: automated exp osure control, adjustment of mA and/or kV according to patient size. COMPARISON: None. FINDINGS: Image quality: Excellent. Pulmonary arteries: Pulmonary arteries are normal in size, and demonstrate no intraluminal filling d efects to suggest central pulmonary embolism. Lungs and pleura: Lungs are clear. No pleural effusions or pneumothorax. Central and peripheral ai rways are patent. Mediastinum: Heart size is normal, without pericardial effusion. No mediastinal or hilar adenopathy . Thoracic aorta is normal in caliber and enhancement. Esophagus is normal in caliber. Moderate Hia vikas hernia. Bones and chest wall: There is skin thickening of the right breast. Surgical clips are seen in right breast adjacent to a nodular soft tissue. There are multiple nonacute right rib fractures involving the lateral aspect of the sixth, seventh and eighth ribs. No axillary or supraclavicular adenopathy. The thyroid is normal in size and there are no incidental findings. Abdomen: Please see separate CT abdomen/pelvis report. IMPRESSION: 1. No findings to suggest pulmonary embolism. 2. No aortic dissection. 3. Moderate size hiatal hernia. 4. Skin thickening of the right breast. Please correlate with findings on physical exam. No significant discrepancy with the preliminary interpretation. Reviewed by: Rekha Nichole MD on 11/24/2022 9:48 AM [facility] Approved by: Rekha Nichole MD on 11/24/2022 9:48 AM PST Station ID: [id number]
--- NOTE | 2022-11-24 12:46 | ED Physician Documentation ---
ED Addendum - Addendum Addendum: 11/24/22 12:42 The patient was signed out to me at change of shift, pending final disposition, after being evaluated for body aches, vomiting, and chest pain. The patient had been found to have an elevated white blood cell count at 29.9, lactic acid level at 3, potassium of 2.9, and elevated troponin initially 50 and then 250. Initially, the overnight emergency physician head that about admitting the patient to the hospital here but had not been able to get a hold of either the [facility] hospitalist or the day hospitalist at [facility]. The patient had been worked up for PE also and this was negative. Dr. Castillo was ultimately able to discuss the case with Dr. Keller, who requested a CT of the abdomen and pelvis. This was done and unremarkable. I did speak with Dr. Keller to determine whether the patient could be admitted here, and she requested that we try to transfer the patient first. I had already contacted [facility] and they had stated it would be some hours before their nursing underwriting clerks supervisor could even talk to us, as they were very busy. We did call around 2 and number of other hospitals all of which were full. [facility] in [place] was willing to let us talk to the pizza driver, though they did state they would not likely have room for the patient because of an overabundance of other cardiac cases that they had. I spoke with Dr. Steve Beckett, who is on-call for cardiology, and he stated that He would not plan to catheterize this patient in the hospital unless she had a very positive stress test. He stated he did not think the patient needed to be transferred but that he would recommend keeping her on her hospitalist service and doing a stress test. If the patient stress test disconcertingly positive then he would be willing to reentertain the idea of transfer. At this point in time I spoke with Dr. Keller, who stated she would accept the patient for admission, given that cardiology has recommended this and would not plan to catheterize the patient. Patient chest pain-free at this time.
[2022-11-24 13:09] VITALS: BP 155/115
[2022-11-24] MEDS ORDERED: ONDANSETRON 4 MG/2 ML VIAL IVP PRN (13:48)
[2022-11-24] MEDS ORDERED: SODIUM CHLORIDE FLUSH 0.9% 10 ML SYRINGE IVP PRN (13:48)
[2022-11-24] MEDS ORDERED: PROCHLORPERAZINE 10 MG/2 ML VIAL IVP PRN (13:48)
[2022-11-24] MEDS ORDERED: ACETAMINOPHEN 325 MG TABLET PO PRN (13:48)
[2022-11-24] MEDS ORDERED: MONTELUKAST 10 MG TABLET PO PRN (13:54)
[2022-11-24] MEDS ORDERED: DICLOFENAC SODIUM 1% GEL 50 GM TUBE TOP PRN (13:54)
[2022-11-24] MEDS ORDERED: oxyCODONE/ACET 5/325 Prepack 4 PO PRN (13:54)
[2022-11-24] MEDS ORDERED: oxyCODONE 5 MG TABLET PO PRN (13:54)
--- NOTE | 2022-11-24 13:54 | HISTORY & PHYSICAL EXAMINATION ---
Chief Complaint - Chief Complaint Chief Complaint: N/V, myalgia, chest pain History of Present Illness - Admitted From Admitted From:: ED - History Obtained From Records Reviewed: Yes History obtained from: ED provider and the patient - History of Present Illness HPI Comment/Other: This is a 62-year-old female with a history of hypertension, hypothyroidism, asthma/COPD, diabetes on Metformin, fibromyalgia and breast cancer status postsurgery and radiation with postop surgical site infection for which she has needed to get hyperbaric treatment at [facility]. The patient presents with___ day Hx of Nausea and vomiting, abdominal pain and cramping and chills. She also reported chest pain anteriorly with radiation through to her back. The work-up in the ED included an EKG showing sinus tachycardia. CTA of the chest showed no evidence of pulmonary embolism or aortic dissection. Her labs showed a potassium of 2.9, elevated white blood count of__, Evaded lactic acid level of 3.1, first troponin 57 then increased to 50 then to 64. Her electrolytes show potassium of 2.9. Her renal and liver function tests are normal. A CT abdomen pelvis was done which showed no abnormalities. I discussed with the ED provider her management and recommended she be transferred to a facility with higher level of care that has cardiology to the that could do cardiac catheterization. The extrusion die template maker on-call at [facility] in [place] did speak to our ED provider and recommended that the patient be hospitalized here, undergo stress test and that if abnormal then to consider transfer for coronary angiogram. 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 - Past Surgical History General: reports: Cholecystectomy Ortho: reports: Rotator cuff repair, 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, Other HEENT: reports: Other - POLST Patient has POLST: No Meds/Allgy - Home Medications Home Medications: Ambulatory Orders Medication Instructions Recorded Confirmed Levothyroxine [Synthroid] 137 mcg PO QDAC 11/29/13 11/24/22 Tizanidine HCl 4 mg PO QID PRN 11/29/13 11/24/22 hydroCHLOROthiazide [Hydrodiuril] 12.5 mg PO DAILY 11/29/13 11/24/22 lamoTRIgine [LaMICtal] 100 - 200 mg PO BID 11/29/13 11/24/22 Oxycodone HCl/Acetaminophen 1 - 2 each PO Q6H PRN #14 tablet 04/20/20 11/24/22 [Percocet 5-325 mg Tablet] Albuterol Sulfate [Proair Hfa 1 - 2 puffs INH Q4H PRN 09/30/20 11/24/22 Inhaler] Calcium Carbonate [Elemental 1,000 mg PO DAILY 09/30/20 11/24/22 Calcium] Cholecalciferol [Vitamin D3] 2,500 unit PO BID 09/30/20 11/24/22 Ciclesonide [Alvesco] 2 puffs IH BID PRN 09/30/20 11/24/22 Diclofenac Sodium [Arthritis Pain] 1 applic TP BID PRN 09/30/20 11/24/22 Gabapentin [Neurontin] 300 mg PO BID 09/30/20 11/24/22 Metoprolol Succinate [Toprol Xl] 100 mg PO DAILY 09/30/20 11/24/22 Montelukast Sodium 10 mg PO DAILY PRN 09/30/20 11/24/22 [place]-3 Acid Ethyl Esters [Lovaza] 2 gm PO DAILY 09/30/20 11/24/22 Simvastatin [Zocor] 40 mg PO QPM 09/30/20 11/24/22 Ondansetron Odt [Zofran Odt] 4 mg TL Q6H PRN #10 tablet 10/07/20 11/24/22 oxyCODONE [Roxicodone] 5 mg PO Q4-6H PRN #7 tablet 10/07/20 11/24/22 Pregabalin [Lyrica] 75 mg PO BID #120 cap 10/29/20 11/24/22 Amitriptyline [Elavil] 10 mg PO QPM 11/24/22 11/24/22 Amlodipine Besylate [Norvasc] 10 mg PO DAILY 11/24/22 11/24/22 hydroCHLOROthiazide [Hydrodiuril] 12.5 mg PO DAILY 11/24/22 11/24/22 lamoTRIgine [Lamictal] 200 mg PO DAILY 11/24/22 11/24/22 metFORMIN [Glucophage] 500 mg PO BID 11/24/22 11/24/22 methocarbamoL [Methocarbamol] 1 - 2 tab PO Q8HR PRN 11/24/22 11/24/22 - Allergies Allergies/Adverse Reactions: Allergies Allergy/AdvReac Type Severity Reaction Status Date / Time cephalexin monohydrate * Allergy Rash Verified 11/24/22 00:42 [From Keflex] Latex, Natural Rubber Allergy burning Verified 11/24/22 00:42 sensation methadone [Methadone] Allergy Rash Verified 11/24/22 00:42 Sulfa (Sulfonamide Allergy Rash Verified 11/24/22 00:42 Antibiotics) clindamycin AdvReac Nausea, Verified 11/24/22 00:42 diarrhea duloxetine AdvReac Emesis Verified 11/24/22 00:42 lisinopril AdvReac Unknown Verified 11/24/22 00:42 Exam - Vital Signs Vital Signs: Vital Signs x48h Pulse Resp BP Pulse Ox 11/24/22 13:08 127 H 18 155/115 H 97 11/24/22 12:50 110 H 14 177/109 H 96 11/24/22 11:30 108 H 12 171/113 H 96 11/24/22 11:17 109 H 12 174/106 H 96 11/24/22 10:31 105 H 12 151/96 H 95 11/24/22 09:18 106 H 16 131/83 H 96 11/24/22 08:42 109 H 15 97 11/24/22 07:38 94 11 L 157/100 H 95 11/24/22 07:24 90 10 L 148/94 H 95 11/24/22 07:00 114 H 12 139/83 H 93 11/24/22 06:31 117 H 12 176/106 H 95 11/24/22 05:56 111 H 12 162/96 H 94 Conclusion/Plan - Lab Results Fish Bones: 11/24/22 00:44 11/24/22 00:44
[2022-11-24] MEDS ORDERED: METOPROLOL SUCCINATE 50 MG TABLET PO ONE (14:00)
[2022-11-24] MEDS ORDERED: D5NS W/20 MEQ KCL 1,000 ML IV SCH (14:00)
[2022-11-24] MEDS ORDERED: NITROGLYCERIN SL 0.4 MG TABLET SL PRN (14:01)
[2022-11-24] MEDS ORDERED: METOCLOPRAMIDE 10 MG/2 ML VIAL IVP PRN (14:06)
[2022-11-24] MEDS ORDERED: NITROGLYCERIN 2% PASTE TOP SCH (15:00)
[2022-11-24] MEDS ORDERED: SODIUM CHLORIDE FLUSH 0.9% 10 ML SYRINGE IVP SCH (17:00)
[2022-11-24] MEDS ORDERED: INSULIN LISPRO 300 UNIT/3 ML PEN SUBQ SCH (17:00)
[2022-11-24] MEDS ORDERED: PANTOPRAZOLE 40 MG VIAL IV SCH (21:00)
[2022-11-24] MEDS ORDERED: lamoTRIgine 25 MG TABLET PO SCH (21:00)
[2022-11-24] MEDS ORDERED: PREGABALIN 25 MG CAPSULE PO SCH (21:00)
[2022-11-24] MEDS ORDERED: GABAPENTIN 300 MG CAPSULE PO SCH (21:00)
[2022-11-24] MEDS ORDERED: AMITRIPTYLINE 10 MG TABLET PO SCH (21:00)
[2022-11-24] MEDS ORDERED: ENOXAPARIN 60 MG/0.6 ML SYRINGE SUBQ SCH (21:00)
[2022-11-25] MEDS ORDERED: LEVOTHYROXINE 100 MCG TABLET PO SCH (07:00)
[2022-11-25] MEDS ORDERED: ASPIRIN EC 81 MG TABLET PO SCH (09:00)
[2022-11-25] MEDS ORDERED: OMEGA-3 ACID ETHYL ESTERS 1 GM CAPSULE PO SCH (09:00)
[2022-11-25] MEDS ORDERED: METOPROLOL SUCCINATE 100 MG PO SCH (09:00)
== END 2022-11-24 13:59 | disposition left against medical advice (07) ==
LOC: ED 00:28
DX: R07.9 Chest pain, unspecified (principal); R10.9 Unspecified abdominal pain; R11.2 Nausea with vomiting, unspecified; M79.10 Myalgia, unspecified site; E87.6 Hypokalemia; I10 Essential (primary) hypertension; E78.00 Pure hypercholesterolemia, unspecified; E03.9 Hypothyroidism, unspecified; Z85.3 Personal history of malignant neoplasm of breast; Z79.899 Other long term (current) drug therapy; Z79.51 Long term (current) use of inhaled steroids; Z79.84 Long term (current) use of oral hypoglycemic drugs
CPT/HCPCS: 36415; 71045; 71275; 74177; 80053; 83605; 83690; 84484; 85025; 85379; 87040; 87633; 93005; 96365; 96366; 96372; 96375; 96376; 99285; A9270; J1170; J1650; J2765; Q9967; 85610

== ENCOUNTER 2022-12-15 14:37 | Outpatient (CLI) | payer OTHER ==
[2022-12-15 19:50] LABS: BASOPHILS # (AUTO) 0.1 10^3/uL (0.0-0.1); BASOPHILS % (AUTO) 0.5 %; EOSINOPHILS # (AUTO) 0.4 10^3/uL (0.0-0.7); EOSINOPHILS % (AUTO) 4.1 %; HCT - HEMATOCRIT 41.2 % (37.0-47.0); HGB - HEMOGLOBIN 12.9 g/dL (12.0-16.0); LYMPHOCYTES # (AUTO) 2.1 10^3/uL (1.5-3.5); LYMPHOCYTES % (AUTO) 20.5 %; MEAN CORPUSCULAR HEMOGLOBIN 28.5 pg (27.0-31.0); MEAN CORPUSCULAR HGB CONC 31.3 g/dL (32.0-36.0); MEAN CORPUSCULAR VOLUME 91.2 fL (81.0-99.0); MEAN PLATELET VOLUME 8.4 fL (7.9-10.8); MONOCYTES # (AUTO) 0.7 10^3/uL (0.0-1.0); MONOCYTES % (AUTO) 6.9 %; NEUTROPHILS % (AUTO) 67.8 %; PLT - PLATELET COUNT 516 10^3/uL (130-450); RED BLOOD COUNT 4.52 10^6/uL (4.20-5.40); RED CELL DISTRIBUTION WIDTH 12.1 % (12.0-15.0); WHITE BLOOD COUNT 10.4 x10^3/uL (4.8-10.8)
[2022-12-15 20:30] LABS: ALBUMIN 4.3 g/dL (3.2-5.5); ALBUMIN/GLOBULIN RATIO 1.1 (1.0-2.2); ALKALINE PHOSPHATASE 118 IU/L (42-121); ALT ALANINE AMINOTRANSFERASE 20 IU/L (10-60); AST ASPARTATE AMINOTRANSFERASE 24 IU/L (10-42); BILIRUBIN,TOTAL 0.5 mg/dL (0.2-1.0); BUN - BLOOD UREA NITROGEN 10 mg/dL (6-20); CALCIUM 9.5 mg/dL (8.5-10.3); CARBON DIOXIDE - CO2 29 mmol/L (21-32); CHLORIDE 97 mmol/L (101-111); CREATININE 0.7 mg/dL (0.4-1.0); GFR - MDRD 85 (>89); GLUCOSE 162 mg/dL (70-100); POTASSIUM 3.9 mmol/L (3.5-5.0); SODIUM 137 mmol/L (135-145); TOTAL PROTEIN 8.1 g/dL (6.7-8.2)
[2022-12-15 21:31] LABS: CRP - C-REACTIVE PROTEIN < 1.0 mg/dL (0-1.0)
== END 2022-12-15 14:38 | disposition home or self-care (01) ==
LOC: LAB.S 14:37
PROVIDERS: ATTEND Nurse Practitioner
DX: E87.6 Hypokalemia (principal); I25.2 Old myocardial infarction; D72.829 Elevated white blood cell count, unspecified; M25.50 Pain in unspecified joint; N60.19 Diffuse cystic mastopathy of unspecified breast
CPT/HCPCS: 36415; 80053; 85025; 85651; 86140

== ENCOUNTER 2023-09-17 10:46 | Outpatient (CLI) | payer OTHER ==
[2023-09-17 15:38] LABS: CHOL/HDL RATIO 3.5 (<4.4); CHOLESTEROL 240 mg/dL; HDL CHOLESTEROL 68 mg/dL; LDL CHOLESTEROL,CALCULATED 127 mg/dL; LDL/HDL RATIO 1.9 (<4.4); TRIGLYCERIDES 225 mg/dL (48-352); VLDL CHOLESTEROL 45 mg/dL
[2023-09-17 16:25] LABS: THYROID STIMULATING HORMONE 0.18 uIU/mL (0.34-5.60)
[2023-09-17 21:37] LABS: ESTIMATED AVERAGE GLUCOSE 137 mg/dL (70-100); HEMOGLOBIN A1c% 6.4 % (4.27-6.07)
== END 2023-09-17 10:47 | disposition home or self-care (01) ==
LOC: LAB.S 10:46
PROVIDERS: ATTEND Internal Medicine Cardiovascular Disease
DX: E11.9 Type 2 diabetes mellitus without complications (principal); E78.5 Hyperlipidemia, unspecified
CPT/HCPCS: 36415; 80061; 83036; 83721; 84439; 84443; 85025

== ENCOUNTER 2023-12-21 14:21 | Outpatient (CLI) | payer OTHER ==
--- NOTE | 2023-12-21 16:13 | XRAY Report ---
PROCEDURE: Lumbar Spine w/Flex/Ext 6+V INDICATIONS: LUMBAR STENOSIS TECHNIQUE: AP & Lateral views of the lumbar spine were acquired, followed by flexion & extension elisabeth ding views of the lumbar spine. COMPARISON: 08/20/2017. FINDINGS: Bones: 5 [id number] vertebrae are present. There is normal bony alignment. No vertebral body compression fractures. No suspicious bony lesions. No pars defects on oblique views. Lower lumbar facet arthropathy. Progression of degenerative disc space loss and facet arthropathy. Soft tissues: Overlying bowel gas pattern is normal. No suspicious soft tissue calcifications. Flexion/extension: There is diminished range of motion, with preserved normal alignment. IMPRESSION: 1. Progression of degenerative disc space loss and facet arthropathy. 2. No acute bony abnormality. 3. Diminished range of motion, no abnormal motion noted. Reviewed by: Willie Ramirez MD on 12/21/2023 4:12 PM PDT Approved by: Willie Ramirez MD on 12/21/2023 4:12 PM PDT Station ID: [id number]
== END 2023-12-21 14:22 | disposition home or self-care (01) ==
LOC: DI.S 14:21
PROVIDERS: ATTEND Pain Medicine Pain Medicine
DX: M47.816 Spondylosis without myelopathy or radiculopathy, lumbar region (principal)

== ENCOUNTER 2024-02-17 13:14 | Outpatient (CLI) | payer OTHER ==
--- NOTE | 2024-02-18 08:57 | Mammography Report ---
UNILATERAL LEFT DIGITAL SCREENING MAMMOGRAM 3D/2D: 02/17/2024 CLINICAL: Routine screening. Comparison is made to exams dated: 07/17/2021 mammogram, 08/29/2020 breast MRI, 06/17/2020 mammogram - [facility], 08/01/2019 mammogram, 08/01/2019 mammogram, and 06/21/2019 mammogram - [facility]. There are scattered areas of fibroglandular density in the left breast (category b / 25%-50% glandula r tissue). There are benign vascular calcifications in the left breast. No significant masses, calcifications, or other findings are seen in the breast. There has been no significant interval change. IMPRESSION: BENIGN There is no mammographic evidence of malignancy. A 1 year screening mammogram is recommended. This exam was interpreted at Station ID: [id number]. NOTE: For mammograms, a report in lay terms will be sent to the patient. Approximately 15% of breast malignancies will not be visualized mammographically. In the management of a palpable breast mass, a negative mammogram must not discourage biopsy of a clinically suspicious lesion. Electronically Signed By: Niki [email or web address]/[email or web address]:02/17/2024 17:23:32 letter sent: No_Letter ACR BI-RADS Category 2: Benign Finding(s) 3342F PARENCHYMAL PATTERN: (A) - The breast(s) demonstrate(s) scattered fibroglandular densities. BI-RADS CATEGORY: (2) - 2 RECOMMENDATION: (ANNUAL) - Recommend routine annual screening mammography. [id number] 1 year screening LATERALITY: (B)
== END 2024-02-17 13:15 | disposition home or self-care (01) ==
LOC: DI 13:14
PROVIDERS: ATTEND Registered Nurse
DX: Z12.31 Encounter for screening mammogram for malignant neoplasm of breast (principal); R92.322 Mammographic fibroglandular density, left breast

== ENCOUNTER 2024-02-17 13:16 | Outpatient (CLI) | payer OTHER ==
--- NOTE | 2024-02-17 23:06 | DEXA Report ---
PROCEDURE: Dexa Spine and/or Hip INDICATIONS: POST MENOPAUSAL TECHNIQUE: Dual energy x-ray absorptiometry (DXA) was performed on a [employer] System. Regions measur ed are the AP Spine, femoral neck, and if needed forearm. COMPARISON: 07/23/2015 FINDINGS: Lumbar Spine: Bone Mineral Density: 1.308 g/cm/cm,T score: 1.1. Left Femoral Neck: Bone Mineral Density: 0.766 g/cm/cm, T score: -2.0. Left Hip: Bone Mineral Density: 0.930 g/cm/cm,T score: -0.6. (T score greater or equal to -1.0: NORMAL) (T score from -1.1 to -2.4: OSTEOPENIA) (T score less than or equal to -2.5 to: OSTEOPOROSIS) Impression: By WHO criteria, this patient has low bone density (osteopenia). Patients with diagnosis of osteoporosis or osteopenia should have regular bone mineral density assess ment. For those eligible for Medicare, routine testing is allowed once every 2 years. Testing frequ ency can be increased for patients who have rapidly progressing disease or for those who are receivin g medical therapy to restore bone mass. Reviewed by: Doyle Krishnan MD on 02/17/2024 11:05 PM PDT Approved by: Doyle Krishnan MD on 02/17/2024 11:05 PM PDT Station ID: [id number]
== END 2024-02-17 13:17 | disposition home or self-care (01) ==
LOC: DI 13:16
PROVIDERS: ATTEND Registered Nurse
DX: M85.88 Other specified disorders of bone density and structure, other site (principal); Z78.0 Asymptomatic menopausal state

== ENCOUNTER 2024-04-17 12:16 | Outpatient (CLI) | payer OTHER ==
--- NOTE | 2024-04-18 10:16 | Ultrasound Report ---
LIMITED ULTRASOUND OF RIGHT BREAST: 04/17/2024 CLINICAL: Diffuse right breast pain. Comparison is made to exams dated: 02/17/2024 mammogram, 02/04/2022 ultrasound, 07/17/2021 ultrasound, 07/17/2021 mammogram, 08/29/2020 breast MRI, and 08/02/2020 ultrasound - [facility] Real-time ultrasound of the right breast four quadrants was performed. [place] scale images of the real -time examination were reviewed. No significant abnormalities were seen sonographically in the right breast. Patient expressed diffus e right breast pain. IMPRESSION: NEGATIVE There is no sonographic evidence of malignancy. No significant abnormalities were seen sonographically in the right breast. Patient expressed diffus e right breast pain. Images were obtained of each quadrant, without large mass or fluid collection. Patient declined right diagnostic mammogram. Clinical evaluation is recommended. Another possible imaging modality for evaluation is breast MRI. Annual mammogram screening recommended. This exam was interpreted at Station ID: [id number]. Electronically Signed By: Armen Espinoza M.D. lc/:04/17/2024 13:56:21 letter sent: No_Letter Ultrasound BI-RADS: 1 Negative BI-RADS CATEGORY: (1) - 1 Mammogram [id number] return to screening LATERALITY: (B)
== END 2024-04-17 12:17 | disposition home or self-care (01) ==
LOC: DI 12:16
PROVIDERS: ATTEND Registered Nurse
DX: N60.11 Diffuse cystic mastopathy of right breast (principal)